=== PATIENT | female | born 1965 | race Caucasian/White ===

== ENCOUNTER 2017-01-03 16:18 | Inpatient (IN) | payer MEDICARE ==
--- NOTE | 2017-01-03 16:23 | ERPHSYRPT ---
- History of Present Illness Time Seen by Provider: 01/03/17 16:22 Historian: patient Exam Limitations: no limitations Physician History: 51 y/o female comes to the ER with complaints of diffuse abdominal pain, constipation and difficulty urinating for the last few days. Pt has been using senna infrequently with no BM in the last 5 days. Pt admits to early satiety and a few episodes of nausea and vomiting. Pt describes the pain as aching, 8/10 , constant and pt has not taken any pain meds. Pt has had constipation in the past and says she feels the same. Timing/Duration: day(s) (5 days) Activities at Onset: none Quality: aching Abdominal Pain Onset Location: generalized abdomen Pain Radiation: no radiation Severity of Pain-Max: severe Severity of Pain-Current: severe Modifying Factors: Improves With: nothing Associated Symptoms: nausea, vomiting Previous symptoms: no prior history Allergies/Adverse Reactions: codeine Allergy (Verified 01/03/17 16:53) dizzy, n&v Home Medications: Amlodipine Besylate 5 mg [Norvasc 5 mg] 5 mg PO DAILY 07/14/14 [History] Gabapentin 300 mg PO UD 07/14/14 [History] Hydrochlorothiazide 25 mg [hydroDIURIL 25 MG] 25 mg PO DAILY 07/14/14 [ History] Lisinopril [Zestril] 20 mg PO DAILY 07/14/14 [History] Sertraline HCl 100 mg [Zoloft 100 MG] 100 mg PO DAILY 02/01/15 [History] Hx Tetanus, Diphtheria Vaccination/Date Given: Yes Hx Influenza Vaccination/Date Given: No Hx Pneumococcal Vaccination/Date Given: No - Review of Systems Constitutional: No Fever, No Chills Eyes: No Symptoms Ears, Nose, & Throat: No Symptoms Respiratory: No Cough, No Dyspnea Cardiac: No Chest Pain, No Edema, No Syncope Abdominal/Gastrointestinal: Abdominal Pain, Nausea, Vomiting, Constipation, Appetite Changes, No Diarrhea Genitourinary Symptoms: No Dysuria Musculoskeletal: No Back Pain, No Neck Pain Skin: No Rash Neurological: No Dizziness, No Focal Weakness, No Sensory Changes Psychological: No Symptoms Endocrine: No Symptoms All Other Systems: Reviewed and Negative - Past Medical History Pertinent Past Medical History: Yes Neurological History: No Pertinent History ENT History: No Pertinent History Cardiac History: Hypertension Respiratory History: Asthma Endocrine Medical History: Hypoglycemia Musculoskeletal History: No Pertinent History GI Medical History: Diverticulitis History: No Pertinent History Psycho-Social History: Anxiety, Depression Female Reproductive Disorders: No Pertinent History Other Medical History: RESTLESS LEG SYNDROME, PTSD. CHRONIC DIARHEA - Past Surgical History Past Surgical History: Yes Neuro Surgical History: No Pertinent History Cardiac: No Pertinent History Respiratory: No Pertinent History Gastrointestinal: No Pertinent History Genitourinary: No Pertinent History Musculoskeletal: No Pertinent History Female Surgical History: No Pertinent History Other Surgical History: infected milk duct in left breast in 2014 had to have it removed. - Social History Smoking Status: Current every day smoker How long have you smoked: 20 Exposure to second hand smoke: No Drug Use: none Patient Lives Alone: Yes - Nursing Vital Signs Nursing Vital Signs: Initial Vital Signs Temperature 99.5 F Temperature Source Oral Pulse Rate 84 Respiratory Rate 16 Blood Pressure [Right Arm] 114/86 Pain Intensity 3 - Physical Exam General Appearance: no apparent distress, alert Eye Exam: PERRL/EOMI, eyes nml inspection Ears, Nose, Throat Exam: normal ENT inspection, pharynx normal, moist mucous membranes Neck Exam: normal inspection, non-tender, supple, full range of motion Respiratory Exam: normal breath sounds, lungs clear, No respiratory distress Cardiovascular Exam: regular rate/rhythm, normal heart sounds Gastrointestinal/Abdomen Exam: soft, normal bowel sounds, tenderness, distention , No mass Back Exam: normal inspection, normal range of motion, No CVA tenderness, No vertebral tenderness Extremity Exam: normal inspection, normal range of motion, pelvis stable Neurologic Exam: alert, oriented x 3, cooperative, normal mood/affect, nml cerebellar function, sensation nml, No motor deficits Skin Exam: normal color, warm, dry - Course Nursing assessment & vital signs reviewed: Yes Ordered Tests: Active Orders 24 hr Category Date Time Status IV Insertion STAT Care 01/03/17 18:12 Active ABDOMEN 2 VIEW Stat Exams 01/03/17 16:50 Taken ABDOMEN AND PELVIS W CONTRAST [CT] Stat Exams 01/03/17 18:12 Taken AMYLASE Stat Lab 01/03/17 18:44 Completed CBCD [CBC W DIFF] Stat Lab 01/03/17 18:44 Completed CMP Stat Lab 01/03/17 18:44 Completed CULTURE,URINE Stat Lab 01/03/17 17:00 Received LIPASE Stat Lab 01/03/17 18:44 Completed Lactic Acid Stat Lab 01/03/17 20:43 Ordered Manual Differential NC Stat Lab 01/03/17 18:44 Completed UA W/ MICROSCOPIC Stat Lab 01/03/17 17:00 Completed Medication Summary Generic Name Dose Route Start Last Admin Trade Name Freq PRN Reason Stop Dose Admin Potassium Chloride 100 mls @ 50 mls/hr 01/03/17 19:36 01/03/17 19:54 Potassium Chloride 20 Meq In Water 100ml IV 01/03/17 21:35 50 mls/hr STAT ONE Administration Sodium Chloride 1,000 mls @ 0 mls/hr 01/03/17 19:45 01/03/17 19:55 Sodium Chloride 0.9% 1000 Ml IV 02/02/17 19:44 100 mls/hr .Q0M BRIONNA Administration KVO Discontinued Medications Generic Name Dose Route Start Last Admin Trade Name Freq PRN Reason Stop Dose Admin Sodium Chloride Confirm 01/03/17 19:40 Sodium Chloride 0.9% 1000 Ml Administered 01/03/17 19:41 Dose 1,000 mls @ ud .ROUTE .STK-MED ONE Potassium Chloride Confirm 01/03/17 19:40 Potassium Chloride 20 Meq In Water 100ml Administered 01/03/17 19:41 Dose 100 mls @ ud IV .STK-MED ONE Morphine Sulfate 2 mg 01/03/17 18:28 01/03/17 18:50 Morphine Sulfate 2 Mg Inj IV 01/03/17 18:29 2 mg STAT ONE Administration Morphine Sulfate Confirm 01/03/17 18:49 Morphine Sulfate 2 Mg Inj Administered 01/03/17 18:50 Dose 2 mg .ROUTE .STK-MED ONE Ondansetron HCl 4 mg 01/03/17 18:27 01/03/17 18:51 Zofran 4 Mg/2 Ml Vial IV 01/03/17 18:28 4 mg STAT ONE Administration Ondansetron HCl Confirm 01/03/17 18:48 Zofran 4 Mg/2 Ml Vial Administered 01/03/17 18:49 Dose 4 mg .ROUTE .STK-MED ONE Lab/Rad Data: Laboratory Result Diagrams 01/03/17 18:44 01/03/17 18:44 Laboratory Results 07/14/17 07/14/17 07/14/17 Range/Units 18:44 18:44 17:00 WBC 18.2 H (4.0-10.5) K/mm3 RBC 3.79 L (4.1-5.4) M/mm3 Hgb 11.2 L (12.0-16.0) gm/dl Hct 34.4 L (35-47) % MCV 90.8 (78-100) fl MCH 29.5 (26-32) pg MCHC 32.6 (32-36) g/dl RDW 13.1 (11.5-14.0) % Plt Count 587 H (150-450) K/mm3 MPV 9.5 (6-9.5) fl Segmented Neutrophils 88 H (36.0-66.0) % Lymphocytes (Manual) 6 L (24-44) % Monocytes (Manual) 6 (0.0-12.0) % Differential Comment NORMAL Platelet Estimate NORMAL (NORMAL) Sodium 140 (136-145) mEq/L Potassium 2.8 L* (3.5-5.1) mEq/L Chloride 99 (98-107) mEq/L Carbon Dioxide 27.0 (21-32) mEq/L Anion Gap 16.8 H (5-15) MEQ/L BUN 21 H (9-20) mg/dL Creatinine 1.06 (0.55-1.30) mg/dl Estimated GFR 58 ML/MIN Glucose 108 (70-110) MG/DL Calcium 9.4 (8.5-10.1) mg/dL Total Bilirubin 0.30 (0.2-1.0) mg/dL AST 14 L (15-37) U/L ALT 10 L (12-78) U/L Alkaline Phosphatase 114 (46-116) U/L Serum Total Protein 8.0 (6.4-8.2) gm/dL Albumin 2.7 L (3.4-5.0) g/dL Amylase 14 L (25-115) U/L Lipase 65 L (73-393) U/L Ur Collection Type VOID Urine Color YELLOW (YELLOW) Urine Appearance CLOUDY (CLEAR) Urine pH 6.0 (5-6) Ur Specific [place] 1.020 (1.005-1.025) Urine Protein 30 (Negative) Urine Ketones LARGE (NEGATIVE) Urine Blood LARGE (0-5) Victorino/ul Urine Nitrite NEGATIVE (NEGATIVE) Urine Bilirubin SMALL (NEGATIVE) Urine Urobilinogen 1 (0-1) mg/dL Ur Leukocyte Esterase LARGE (NEGATIVE) Urine Microscopic WBC 50-100 (0-5) /HPF Ur Epithelial Cells MANY (FEW) /HPF Amorphous Crystals FEW (NEGATIVE) /HPF Urine Bacteria MANY (NEGATIVE) /HPF Urine Glucose 50 (NEGATIVE) mg/dL Specimen Received 01/03/17 1700 - Progress Progress: improved Progress Note: 01/03/17 20:53 The patient has a K of 2.8 and was given a k-rider. Pt also has a white count of 18,000. The CT scan abd/pelvis shows a distal sigmoid and rectal mass up to 10 cm long producing obstruction with proximal colonic dilatation up to 7 cm. I spoke to Dr Terry who says that his partner will see the patient in the morning for colonoscopy. Pt has been admitted to Dr Cabrera for sigmoid mass and abdominal pain. - Departure Time of Disposition: 20:55 Departure Disposition: In-patient Admission Clinical Impression: Mass in rectum Condition: Fair Critical Care Time: Yes Critical Care Time(excluding separately billable procedures): 75-104 minutes
[2017-01-03 17:14] LABS: Collection Type VOID; Glucose 50 mg/dL (NEGATIVE); Leukocyte Esterase LARGE (NEGATIVE)
[2017-01-03 17:15] LABS: Bacteria MANY /HPF (NEGATIVE); Bilirubin SMALL (NEGATIVE); Blood LARGE Ery/ul (0-5); COMPLETE URINE MICROSCOPIC? YES; Epithelial Cells MANY /HPF (FEW); WBC 50-100 /HPF (0-5)
[2017-01-03 17:17] LABS: ADD URINE CULTURE? YES (NO)
[2017-01-03] MEDS ORDERED: Zofran 4 MG/2 ML VIAL IV ONE (18:27)
[2017-01-03] MEDS ORDERED: MORPHINE SULFATE 2 MG INJ IV ONE (18:28)
[2017-01-03] MEDS ORDERED: Zofran 4 MG/2 ML VIAL ONE (18:48)
[2017-01-03] MEDS ORDERED: MORPHINE SULFATE 2 MG INJ ONE (18:49)
[2017-01-03 19:19] LABS: Mean Cell Volume 90.8 fl (78-100); Mean Platelet Volume 9.5 fl (6-9.5); Platelet Count 587 K/mm3 (150-450); Red Blood Count 3.79 M/mm3 (4.1-5.4); Red Cell Distribution Width 13.1 % (11.5-14.0); White Blood Count 18.2 K/mm3 (4.0-10.5)
[2017-01-03 19:20] LABS: Mean Corpuscular Hemoglobin 29.5 pg (26-32)
[2017-01-03 19:25] LABS: ALBUMIN 2.7 g/dL (3.4-5.0); ANION GAP 16.8 MEQ/L (5-15); BILIRUBIN,TOTAL 0.3 mg/dL (0.2-1.0)
[2017-01-03 19:32] LABS: Potassium 2.8 mEq/L (3.5-5.1)
[2017-01-03] MEDS ORDERED: POTASSIUM CHLORIDE 20 mEq IN WATER 100ML 100 ML IV ONE ×2 (19:36→19:40)
[2017-01-03] MEDS ORDERED: Sodium Chloride 0.9% 1000 ML 1,000 ML ONE (19:40)
[2017-01-03] MEDS ORDERED: Sodium Chloride 0.9% 1000 ML 1,000 ML IV SCH (19:45)
[2017-01-03 20:11] LABS: Platelet Estimate NORMAL (NORMAL); Total Cells Counted 100
[2017-01-03] MEDS ORDERED: Zofran 4 MG/2 ML VIAL IV PRN (20:56)
[2017-01-03] MEDS ORDERED: MORPHINE SULFATE 4 MG INJ IV PRN (20:56)
[2017-01-03] MEDS ORDERED: MORPHINE SULFATE 4 MG INJ IV ONE (21:00)
[2017-01-04] MEDS ORDERED: PROVENTIL COMMON CANISTER IH PRN (00:12)
[2017-01-04] MEDS: NEURONTIN 300 MG PO SCH ×3 (01:08→22:10)
[2017-01-04] MEDS: Mirapex 0.5 MG Tablet PO SCH ×2 (01:09→22:10)
[2017-01-04 06:02] LABS: BASOPHIL % 0.1 % (0.0-0.4); Eosinophil % 0.8 % (0.00-5.0); Granulocytes % 77.8 % (36.0-66.0); Lymphocytes % 11.9 % (24.0-44.0); Mean Cell Volume 92.6 fl (78-100); Mean Platelet Volume 8.6 fl (6-9.5); Monocytes % 9.4 % (0.0-12.0); Platelet Count 576 K/mm3 (150-450); Red Blood Count 3.52 M/mm3 (4.1-5.4); Red Cell Distribution Width 13.2 % (11.5-14.0); White Blood Count 15.6 K/mm3 (4.0-10.5)
[2017-01-04 06:29] LABS: Mean Corpuscular Hemoglobin 29.2 pg (26-32)
[2017-01-04 06:42] LABS: ALBUMIN 2.5 g/dL (3.4-5.0); BILIRUBIN,TOTAL 0.3 mg/dL (0.2-1.0); Carbon Dioxide 28.2 mEq/L (21-32); Total Protein 7.4 gm/dL (6.4-8.2)
[2017-01-04] MEDS: PROVENTIL COMMON CANISTER IH SCH ×3 (07:27→20:11)
--- NOTE | 2017-01-04 07:47 | XRAY ---
Indication: Difficulty with bowel movements and urinating for 7 days. Comparison: July 14, 2014. 2 views of the abdomen now demonstrates abnormal air distended colon throughout concerning for distal obstruction. No free air. Solid organs obscured by the overlying bowel gas but grossly unremarkable. Osseous structures intact again with mild multilevel degenerative spondylosis and mild double curvature scoliosis. Lung bases clear. Impression: New abnormal air distended colon concerning for obstruction. See same day CT abdomen/pelvis exam.
[2017-01-04] MEDS ORDERED: BRIDION 200MG/2ML IV ONE (08:00)
[2017-01-04] MEDS ORDERED: Zofran 4 MG/2 ML VIAL IV ONE (08:00)
[2017-01-04] MEDS ORDERED: DIPRIVAN 200 MG/20 ML IV ONE (08:00)
[2017-01-04] MEDS ORDERED: Quelicin Fliptop 200 MG/10 ML IJ ONE (08:00)
[2017-01-04] MEDS ORDERED: SUBLIMAZE 250 MCG/5 ML IV ONE (08:00)
[2017-01-04] MEDS ORDERED: Zemuron 100 MG/10 ML IJ ONE (08:00)
[2017-01-04] MEDS ORDERED: LIDOCAINE HCL 2% 100 MG/5 ML IJ ONE (08:00)
[2017-01-04] MEDS ORDERED: Versed 2 MG/2 ML Injection IV ONE (08:00)
[2017-01-04] MEDS ORDERED: Decadron 4 MG INJ IV ONE (08:00)
[2017-01-04] MEDS ORDERED: DILAUDID 2 MG INJECTION IV ONE (08:00)
--- NOTE | 2017-01-04 08:09 | XRAY ---
Indication: Difficulty urinating. Constipation. Multiple contiguous axial images obtained through the abdomen and pelvis using 80 cc Isovue 370 contrast only. Comparison: None Lung bases demonstrates medial right middle lobe subsegmental atelectasis. No infiltrate or effusion. Heart is not enlarged. Small hiatal hernia. There is diffuse abnormal air distended colon up to 7 cm in diameter to the level of the distal sigmoid/rectum where there is a large soft tissue mass producing obstruction. Soft tissue mass demonstrates multifocal pockets of fluid possibly tissue necrosis. The mass measures at least 10 cm in length. No free fluid/air or evidence for perforation. Minimal scattered sigmoid diverticulosis. Noncontrasted stomach and small bowel loops unremarkable. 8 mm left mid renal cortical cyst and nonobstructing right renal micro-calculus. Remaining liver, gallbladder, pancreas, spleen, adrenal glands, kidneys, ureters, bladder, and uterus appear unremarkable. Mild aortoiliac calcifications without AAA. A few small periaortic nodes, largest 8 x 11 mm anterior to the aortic bifurcation. Osseous structures intact with mild degenerative changes throughout the spine greatest at the lumbosacral junction. Heterotopic ossifications adjacent to the left ischial tuberosity either degenerative versus old injury. Impression: 1. Heterogeneous distal sigmoid/rectal mass producing obstruction worrisome for malignancy. No evidence for perforation. Incidental sigmoid diverticulosis. 2. Indeterminant small periaortic nodes. Metastasis not completely excluded. 3. Incidental left renal cyst, nonobstructing right renal micro-calculus, and small hiatal hernia. CTDI 27.38
[2017-01-04] MEDS: POTASSIUM CHLORIDE 20 mEq IN WATER 100ML 100 ML IV SCH ×2 (09:00→15:08)
[2017-01-04] MEDS ORDERED: AlbuRx 25% 50ML VIAL*** 50 ML IV ONE (09:04)
[2017-01-04] MEDS ORDERED: Lactated Ringers 3,000 ML IV ONE (09:05)
--- NOTE | 2017-01-04 09:09 | PCM.HP ---
History of Present Illness - Chief Complaint Chief Complaint: sigmoid mass History of Present Illness: is a 51 year old female who has had intermittent constipation issues for the last few months intermittently. She has had significant problems with constipation for the last 10 days or so. She denies blood in the stool. She had a colonoscopy 2 years ago that showed diverticular disease and right sided colitis. She has a history of hypertension and hypothyroidism. - Review of Systems Constitutional: No Fever, No Chills Cardiac: No Chest Pain, No Edema, No Syncope Abdominal/Gastrointestinal: Constipation, No Abdominal Pain, No Nausea, No Vomiting Genitourinary Symptoms: No Dysuria Skin: No Rash All Other Systems: Reviewed and Negative Medications & Allergies Home Medications: Home Medication List Amlodipine Besylate 5 mg [Norvasc 5 mg] 5 mg PO DAILY 07/14/14 [History Confirmed 01/04/17] Hydrochlorothiazide 25 mg [hydroDIURIL 25 MG] 25 mg PO DAILY 07/14/14 [ History Confirmed 01/04/17] Lisinopril [Zestril] 20 mg PO DAILY 07/14/14 [History Confirmed 01/04/17] Sertraline HCl 100 mg [Zoloft 100 MG] 125 mg PO DAILY 02/01/15 [History Confirmed 01/04/17] Hydroxyzine HCl 25 mg [Atarax 25 mg] 25 mg PO TID PRN PRN #90 tablet 02/03 [Rx Confirmed 01/04/17] Pramipexole Di-HCl [Mirapex] 0.5 mg PO QHS 01/03/17 [History Confirmed 01/04/17] Gabapentin [Neurontin] 600 mg PO DAILY 01/04/17 [History Confirmed 01/04/17] Gabapentin [Neurontin] 900 mg PO HS 01/04/17 [History Confirmed 01/04/17] Allergies/Adverse Reactions: Allergies Allergy/AdvReac Type Severity Reaction Status Date / Time codeine Allergy tang, n&v Verified 01/03/17 16:53 - Past Medical History Past Medical History: Yes Neurological History: No Pertinent History ENT History: Cataracts Cardiac History: Hypertension Respiratory History: Asthma Endocrine Medical History: No Pertinent History Musculoskelatal History: No Pertinent History GI Medical History: Colitis, Diverticulitis History: No Pertinent History Pyscho-Social History: Anxiety, Depression Reproductive Disorders: No Pertinent History Comment: RESTLESS LEG SYNDROME, PTSd - Female History Hx Last Menstrual Period: MENOPAUSE Are you now?: No - Past Surgical History Past Surgical History: Yes Neuro Surgical History: No Pertinent History Cardiac History: No Pertinent History Respiratory Surgery: No Pertinent History GI Surgical History: No Pertinent History Genitourinary Surgical Hx: No Pertinent History Musculskeletal Surgical Hx: No Pertinent History Female Surgical History: No Pertinent History Other Surgical History: infected milk duct in left breast in 2014 had to have it removed. tubal ligation, jaw surgery 33 years ago - Social History Smoking Status: Current every day smoker How long have you smoked: 32 years Exposure to second hand smoke: Yes Alcohol: None Drug Use: none - Physical Exam Vital Signs: Vital Signs - 24 hr Temp Pulse Resp BP Pulse Ox 01/04/17 08:00 97.9 F 71 18 125/71 97 01/04/17 07:00 78 18 97 01/04/17 04:00 98.1 F 74 19 114/73 94 L 01/04/17 00:00 98.1 F 79 18 114/86 95 01/03/17 23:52 79 18 95 01/03/17 23:00 98.1 F 82 18 114/86 93 L 01/03/17 22:50 98.1 F 82 18 118/70 93 L 01/03/17 19:50 84 16 114/86 94 L 01/03/17 19:00 82 18 128/82 96 01/03/17 17:50 86 18 140/80 94 L 01/03/17 17:08 90 16 117/72 94 L 01/03/17 16:43 99.5 F 86 20 121/54 95 Oxygen-Last 24 hours O2 Percentage 2 Liters = 28% O2 Percentage 2 Liters = 28% O2 Percentage 2 Liters = 28% General Appearance: no apparent distress, alert Eye Exam: PERRL/EOMI, eyes nml inspection Respiratory Exam: normal breath sounds, lungs clear, No respiratory distress Cardiovascular Exam: regular rate/rhythm, normal heart sounds, normal peripheral pulses Gastrointestinal/Abdomen Exam: tenderness (LLQ) Extremity Exam: normal inspection, normal range of motion, pelvis stable Skin Exam: normal color, warm, dry, No rash Results - Labs Lab/Micro Results: Lab Results-Last 24 Hours 01/04/17 01/04/17 Range/Units 05:55 05:55 WBC 15.6 H (4.0-10.5) K/mm3 RBC 3.52 L (4.1-5.4) M/mm3 Hgb 10.3 L (12.0-16.0) gm/dl Hct 32.6 L (35-47) % MCV 92.6 (78-100) fl MCH 29.2 (26-32) pg MCHC 31.6 L (32-36) g/dl RDW 13.2 (11.5-14.0) % Plt Count 576 H (150-450) K/mm3 MPV 8.6 (6-9.5) fl Gran % 77.8 H (36.0-66.0) % Lymphocytes % 11.9 L (24.0-44.0) % Monocytes % 9.4 (0.0-12.0) % Eosinophils % 0.8 (0.00-5.0) % Basophils % 0.1 (0.0-0.4) % Basophils # 0.01 (0-0.4) Sodium 142 (136-145) mEq/L Potassium 3.0 L* (3.5-5.1) mEq/L Chloride 103 (98-107) mEq/L Carbon Dioxide 28.2 (21-32) mEq/L Anion Gap 14.0 (5-15) MEQ/L BUN 26 H (9-20) mg/dL Creatinine 1.13 (0.55-1.30) mg/dl Estimated GFR 54 ML/MIN Glucose 102 (70-110) MG/DL Calcium 9.2 (8.5-10.1) mg/dL Total Bilirubin 0.30 (0.2-1.0) mg/dL AST 14 L (15-37) U/L ALT 10 L (12-78) U/L Alkaline Phosphatase 102 (46-116) U/L Serum Total Protein 7.4 (6.4-8.2) gm/dL Albumin 2.5 L (3.4-5.0) g/dL - Other Procedures and Tests Respiratory Therapy 01/04/17 00:12 Respiratory MDI PRN 01/04/17 00:13 Oxygen NASAL CANNULA 2 lpm 01/04/17 07:00 Respiratory MDI TID Assessment/Plan (1) Mass in rectum Current Visit: Yes Status: Acute Assessment & Plan: Dr Menendez is taking the patient to surgery with planned resection Code(s): K62.9 - DISEASE OF ANUS AND RECTUM, UNSPECIFIED (2) Essential (primary) hypertension Current Visit: Yes Status: Acute Assessment & Plan: stable currently, continue home meds Code(s): I10 - ESSENTIAL (PRIMARY) HYPERTENSION (3) Hypothyroidism Current Visit: Yes Status: Acute Code(s): E03.9 - HYPOTHYROIDISM, UNSPECIFIED
[2017-01-04] MEDS ORDERED: Lactated Ringers 1,000 ML IV ONE (09:22)
[2017-01-04] MEDS ORDERED: KEFZOL 1 GM ONE (09:52)
[2017-01-04] MEDS ORDERED: Lactated Ringers 1,000 ML IV SCH (10:00)
[2017-01-04] MEDS ORDERED: MEFOXIN 2 GM PREMIX** 2 GM/50 ML ML IV SCH (10:00)
[2017-01-04] MEDS ORDERED: DILAUDID 1 MG/1ML PCA IV PRN (13:12)
[2017-01-04] MEDS ORDERED: TORAdol 30 mg Injection ONE (13:12)
[2017-01-04] MEDS ORDERED: PHARMACY DOSING REQUIRED: DILAUDID PCA IV ONE (14:59)
[2017-01-04] MEDS ORDERED: TYLENOL 325 MG PO PRN (15:03)
[2017-01-04] MEDS ORDERED: FEVERALL 650 MG RC PRN (15:07)
[2017-01-04] MEDS ORDERED: Zestril 20 MG PO SCH (15:30)
[2017-01-04] MEDS ORDERED: NORVASC 5 MG PO SCH (15:30)
--- NOTE | 2017-01-04 16:30 | CONS ---
CONSULT DATE: 01/04/17 Dr. Terry is on-call for our group. He is covering trauma call. He asked me to see this patient. HISTORY OF PRESENT ILLNESS: 51 y/o female had an endoscopy 2 or 3 years ago. Had some diverticular disease. Now, in with increased abdominal pain, cramping, and some difficulty in urinating over the past few days. No significant bowel movement over the past several days. She had passed some gas, but not today. She had had some nausea. PAST MEDICAL HISTORY: Hypertension. She is a little bit overweight. She denies any heart problems. She has had some posttraumatic stress disorder and some restless leg syndrome. She did have some history of some chronic loose stools in the past. PAST SURGICAL HISTORY: She had a tubal in the past. Thought she said she may have some breast surgery. Had an infected milk duct removed back in 2013 and I don't recall if she said she had had any jaw surgery or not. Otherwise, other than the hypertension and some asthma and chronic obstructive pulmonary disease, has had some anxiety or depression. Otherwise, denies any chest pain or palpitations. HOME MEDICATIONS: Amlodipine, gabapentin, hydrochlorothiazide, lisinopril, and sertraline. ALLERGIES: CODEINE CAUSED SOME DIZZINESS, NAUSEA, AND VOMITING IN THE PAST. Lactic acid was 0.9 when she was admitted yesterday. WBC was 15, Hgb 10.3, platelets 576,000. CT scan of the pelvis showed heterogeneous distal sigmoid/rectal mass causing obstruction. Whether from dilated proximal colon. No obvious free air collection. She did have diverticulosis. Had some small periaortic nodes. Nonobstructing right renal calculus. Also has a renal cyst. REVIEW OF SYSTEMS: 12 systems reviewed pertinent for as noted above. PHYSICAL EXAMINATION: GENERAL: No acute distress. Vital signs stable. HEENT: Sclerae nonicteric. NECK: No JVD. CHEST: Equal excursion. Nonlabored breathing. ABDOMEN: Some distention. Some mild tenderness. No rebound. No guarding currently. EXTREMITIES: No significant edema. NEURO: Alert, moving extremities grossly symmetrically. IMPRESSION: 1. LARGE BOWEL OBSTRUCTION UNCLEAR ETIOLOGY. Could be anything from diverticular stricture to neoplasia malignancy, inflammatory bowel disease or other etiology. Anyway, given large bowel obstruction, feel she warrants emergent laparotomy, likely end ostomy, possible partial colectomy pending operative findings as well as possible endoscopy for biopsy. General risks of anesthesia, deep vein thrombosis, pulmonary embolism, or pneumonia; risk of wound complications, hernia, or dehiscence; risk of stomal complications, necrosis, retraction, peristomal hernia; risk of bowel obstruction or ileus; small risk of bowel, bladder, blood vessel, or ureter issues or injury possibly requiring other procedures, but not limited to. She understands all of the above and understands if she declines the operation, likely the bowel would continue to get distended and likely perforate eventually much worsening the prognosis. She understands all of the above as well as the risk of renal insufficiency, pneumonia, and cardiopulmonary event given her comorbidities, but not limited to. Will proceed with exploratory laparotomy, likely end ostomy, possible partial colectomy, possible colonoscopy when OR time available. Dr. Terry is on-call for our group out on trauma call. He prefers I go ahead and take care of this while I am down here. He will cover trauma call in [place] during this interim. Thank you for the consult.
[2017-01-04] MEDS: D5W/0.45NS W/ 20mEq KCl 1000 ML 1,000 ML IV SCH (16:58)
[2017-01-04] MEDS: Zosyn 3.375GM/100 Ml D5W 3.375 GM/100 ML IVPB IV SCH (16:58)
[2017-01-04] MEDS: ZOLOFT 50 MG TABLET PO SCH (16:58)
--- NOTE | 2017-01-04 18:59 | OP ---
THIS REPORT WAS AMENDED ON 01/08/17. SURGERY DATE: 01/04/17 SURGERY TIME: 935 PREOPERATIVE DIAGNOSIS: 1. HIGH GRADE PARTIAL LARGE BOWEL OBSTRUCTION WITH MEGACOLON. POSTOPERATIVE DIAGNOSIS: 1. HIGH GRADE PARTIAL BOWEL OBSTRUCTION. 2. RECTOSIGMOID inflammatory MASS(currently unresectable). PROCEDURE: 1. Exploratory laparotomy. 2. Partial sigmoid colon resection. 3. End colostomy. 4. Staple closure rectosigmoid stump. 5. True cut core biopsy of inflammatory rectosigmoid mass. 6. Colonoscopy through ostomy to ascending colon. 7. Flexible sigmoidoscopy through anus with cold biopsy of inflammatory rectosigmoid mass. SURGEON: Dr. Earnest Menendez. ANESTHESIA: General. ESTIMATED BLOOD LOSS: Minimal. INDICATIONS: As noted above. Risks and benefits explained in detail, but not limited to. Consent was obtained. The patient had a large bowel obstruction with a megacolon. Was having cramping and pain. CT scan showed rectosigmoid area density or mass. It was felt she could not tolerate a bowel prep given her very distended megacolon. It was felt she warranted laparotomy and probable ostomy. Risks and benefits explained in detail, but not limited to as outlined per surgical consult. Consent was obtained. DESCRIPTION OF PROCEDURE AND FINDINGS: The patient was taken to the OR. General anesthesia was induced. The abdomen was prepped and draped in the usual sterile fashion. After official time-out, no disagreement in planned procedure. Midline incision which was later extended up towards the mid epigastrium. Dissection carried down through the linea alba. Peritoneum entered sharply. The patient had quite distended megacolon which made it very difficult to manipulate the bowel. The white line of Toldt released laterally on the left. There was inflammation and a firmness down in the pelvis that was not resectable at this point. Therefore, the sigmoid was stapled with plan for end colostomy. It was quite friable mesentery requiring clamping, dividing, and ligating with Vicryl ties and ligature device. It should be noted that there was blood supply to a 10 or 15 segment of the left colon and it was felt it would be safer not to save that for the ostomy. This part of the colon was kept as a blowhole initially to try to decompress the colon to get some of the air out with an NG tube, but never had thick stool to be able to do that. The NG was removed. The lateral peritoneal reflection was continued to be incised allowing the colon to be mobilized up through a left-sided ostomy cruciate incision up through the posterior and anterior rectus sheath with this devitalized colon that was planned to be resected with 10 or 15 cm left out as a blowhole. Initially tried to decompress more proximal, but seemed to have more gas in the more proximal colon than G tube. This was unsuccessful. The next best option was felt to use the colonoscope. Was carefully passed up through the ostomy through the descending colon and transverse colon around the ascending colon decompressing the gas as much as possible. This was still quite difficult given the extensive thick stool in the colon and nearly impossible to try to decompress this, but was able to decompress a lot of the gas. There had been no obvious obstructing masses in the more proximal colon, but again very poor prep, basically no bowel prep. The scope as then gradually withdrawn again decompressing as much of the gas as possible to allow for closure. Once this was accomplished, the colonoscope was removed. At this point, attention was then turned. As there was too much inflammation to safely resect this pelvic inflammatory firm mass, it was elected to do a colonoscopy. Flexible sigmoidoscopy was then accomplished up through the anus/distal rectum. No obvious masses or polyps, but in the more proximal rectum/rectosigmoid area, there was a firm density that had some inflammation over it. Whether this is some mass in the bowel wall is difficult to tell. The scope was able to be passed just passed there, so it was not completely obstructing, but I agreed partial obstruction. The colon was decompressed as well as possible. Multiple cold biopsies were taken with the aid of the endoscope. So it was flexible sigmoidoscopy with cold biopsies of this inflammatory density. Good hemostasis was noted. The scope was then withdrawn after it was decompressed as well as possible. At this point, I have elected to go ahead and do a true cut core biopsy of the density transrectal from inside the abdomen. True cut core biopsy was carefully inserted and advanced forward and then passed over the true cut core biopsy and specimen was then sent off. 3-0 PDS suture closed this area. MAU drain was left in the pelvis along either side of the gutter out through the lateral stab wound. Secured with PDS suture. Placed to bulb suction. A copious amount of irrigation irrigating until clear. All packs had been removed. As much of the distended colon had been decompressed as possible. At this point, consideration made to bring up a mucus fistula. However, this was not a complete obstruction and given her obesity, the distal limb did not seem mobile enough to safely come up to the skin. Therefore, it is not a complete obstruction. It was felt the risk of the thing retracting given her obesity would be more potential than the benefit of any pop off mucus fistula as this was not completely obstructing. Therefore, biopsies had been taken and stump had been stapled off. A copious amount of irrigation irrigating until clear. Good hemostasis was visible. At this point, fascia was closed with running, looped sequential 0 PDS with a short segment of running PDS was used in the very distal caudal aspect of the fascial area should some sort of mucus fistula be necessary later. Otherwise, subq irrigated out. Skin stapled with some Iodoform packing placed to allow for any drainage. Dressing was applied at this point at the ostomy. Again, the last 10 or 15 cm of the poor quality sigmoid colon had been resected down to what appeared to be viable colon. The ostomy was matured in a nipple fashion with interrupted 3-0 and 4-0 Vicryl. Patient tolerated the procedure well. There were no immediate complications. Findings discussed with the family out in the waiting area. Will await for path results. In the meantime, she had NG decompression, IV hydration, and bowel rest. When ostomy starts functioning better, will then discontinue the NG and advance her diet, but need to avoid all extra distention at this time given her distended megacolon, but even though decompressed, was not able to be decompressed completely given the thick stool in her colon.
[2017-01-05] MEDS: D5W/0.45NS W/ 20mEq KCl 1000 ML 1,000 ML IV SCH ×2 (03:30→14:23)
[2017-01-05] MEDS: Zosyn 3.375GM/100 Ml D5W 3.375 GM/100 ML IVPB IV SCH ×2 (03:32→07:38)
[2017-01-05] MEDS: PROVENTIL COMMON CANISTER IH SCH (05:15)
[2017-01-05] MEDS ORDERED: ENOXAPARIN SODIUM SQ SCH (06:00)
[2017-01-05] MEDS ORDERED: NORCO 5/325 MG PO PRN (06:00)
[2017-01-05 06:50] LABS: Mean Cell Volume 95.2 fl (78-100); Platelet Count 518 K/mm3 (150-450); Red Cell Distribution Width 13.9 % (11.5-14.0); White Blood Count 19.6 K/mm3 (4.0-10.5)
[2017-01-05 07:36] LABS: ALBUMIN 2.1 g/dL (3.4-5.0); ANION GAP 14.4 MEQ/L (5-15); BILIRUBIN,TOTAL 0.4 mg/dL (0.2-1.0); Carbon Dioxide 25.8 mEq/L (21-32); MAGNESIUM 1.9 mg/dL (1.8-2.4); Potassium 4.3 mEq/L (3.5-5.1); Total Protein 6.2 gm/dL (6.4-8.2)
[2017-01-05] MEDS ORDERED: Sodium Chloride 0.9% 1000 ML 1,000 ML IV SCH (09:30)
--- NOTE | 2017-01-05 09:33 | PCM.NOTE ---
Date and Time: 01/05/17926 Subjective Assessment: patient states her pain is controlled at this time, urine output has been decreased since surgery Objective Exam General Appearance: no apparent distress, alert Skin Exam: normal color, warm, dry Respiratory Exam: normal breath sounds, lungs clear, No respiratory distress Cardiovascular Exam: regular rate/rhythm, normal heart sounds Gastrointestinal/Abdomen Exam: soft, other (ostomy pink and viable), No tenderness, No mass Extremity Exam: normal inspection, normal range of motion OBJECTIVE DATA Vital Signs: Vital Signs - 24 hr Temp Pulse Resp BP Pulse Ox 01/05/17 08:00 97.6 F 80 20 82/49 92 L 01/05/17 05:52 93 L 01/05/17 05:15 77 20 95 01/05/17 04:00 98.5 F 83 21 91/53 93 L 01/05/17 00:00 98.5 F 79 19 84/61 96 01/04/17 21:38 96 01/04/17 20:37 97.9 F 63 18 90/55 96 01/04/17 20:11 63 14 97 01/04/17 17:38 97 01/04/17 16:00 98.0 F 67 18 109/65 97 01/04/17 15:34 84 16 96 01/04/17 15:24 18 01/04/17 14:35 97.8 F 78 18 108/58 92 L 01/04/17 14:05 89 18 108/59 96 01/04/17 13:50 97.2 F 76 16 109/64 92 L 01/04/17 13:38 94 L Oxygen-Last 24 hours O2 Percentage 4 Liters = 36% O2 Percentage 3 Liters = 32% O2 Percentage 3 Liters = 32% O2 Percentage 4 Liters = 36% O2 Percentage 4 Liters = 36% O2 Percentage 2 Liters = 28% O2 Percentage 2 Liters = 28% O2 Percentage 2 Liters = 28% Pain Assessment - Last Documented Pain Intensity 6 Pain Scale Used 0-10 Pain Scale Intake and Output: Intake & Output 01/02/17 01/03/17 01/04/17 01/05/17 11:59 11:59 11:59 11:59 Intake Total 179 1366 Output Total 455 Balance 179 911 Weight 97.522 kg Lab Results: Lab Results-Last 24 Hours 01/05/17 01/05/17 Range/Units 05:10 05:10 WBC 19.6 H (4.0-10.5) K/mm3 RBC 3.30 L (4.1-5.4) M/mm3 Hgb 9.6 L (12.0-16.0) gm/dl Hct 31.4 L (35-47) % MCV 95.2 (78-100) fl MCH 29.0 (26-32) pg MCHC 30.6 L (32-36) g/dl RDW 13.9 (11.5-14.0) % Plt Count 518 H (150-450) K/mm3 MPV 9.0 (6-9.5) fl Sodium 140 (136-145) mEq/L Potassium 4.3 (3.5-5.1) mEq/L Chloride 104 (98-107) mEq/L Carbon Dioxide 25.8 (21-32) mEq/L Anion Gap 14.4 (5-15) MEQ/L BUN 33 H (9-20) mg/dL Creatinine 2.90 H (0.55-1.30) mg/dl Estimated GFR 18 ML/MIN Glucose 136 H (70-110) MG/DL Calcium 8.1 L (8.5-10.1) mg/dL Magnesium 1.9 (1.8-2.4) mg/dL Total Bilirubin 0.40 (0.2-1.0) mg/dL AST 31 (15-37) U/L ALT 11 L (12-78) U/L Alkaline Phosphatase 73 (46-116) U/L Serum Total Protein 6.2 L (6.4-8.2) gm/dL Albumin 2.1 L (3.4-5.0) g/dL Multi-Disciplinary Progress Notes: Multi-Disciplinary Progress Notes 01/05/17 07:44 Pharmacy Note by Jarad Pelayo lower Zosyn dose to 2.25gm iv q8h per renal dosing policy for increased creatinine. Initialized on 01/05/17 07:44 - END OF NOTE Assessment/Plan (1) Acute renal failure Current Visit: Yes Status: Acute Assessment & Plan: increase IV fluid rate to 150mL/hr (2) Mass in rectum Current Visit: Yes Status: Acute Assessment & Plan: s/p ostomy placement and biopsy with Dr Lueking, path report pending. continue empiric IV abx with zosyn and flagyl due to possibly inflammatory process, infection Code(s): K62.9 - DISEASE OF ANUS AND RECTUM, UNSPECIFIED (3) Essential (primary) hypertension Current Visit: Yes Status: Acute Assessment & Plan: patient is hypotensive at this time, placed lisinopril and amlodipine on hold at this time. Code(s): I10 - ESSENTIAL (PRIMARY) HYPERTENSION (4) Hypothyroidism Current Visit: Yes Status: Acute Code(s): E03.9 - HYPOTHYROIDISM, UNSPECIFIED
[2017-01-05] MEDS ORDERED: SERTRALINE HCL PO SCH (10:00)
[2017-01-05] MEDS ORDERED: FLAGYL 500 MG IVPB 500 MG/100 ML BAG IV SCH (10:00)
[2017-01-05 10:13] LABS: Eosinophil 1 % (0.00-3.0); Platelet Estimate INCREASED (NORMAL); Total Cells Counted 100
[2017-01-05 10:14] LABS: Toxic Granulation 1+
[2017-01-05] MEDS: NEURONTIN 300 MG PO SCH (10:38)
[2017-01-05] MEDS: ZOLOFT 50 MG TABLET PO SCH (10:38)
[2017-01-05] MEDS ORDERED: PROVENTIL 2.5 MG/3 ML NEB IH ONE ×2 (11:15→11:30)
[2017-01-05] MEDS ORDERED: solu-MEDROL 40 MG IV SCH (12:00)
[2017-01-05 12:41] LABS: A-aADO2 587; ARTERIAL BLD GAS O2 SATURATION 96.1 % (95-100); ARTERIAL BLOOD GAS BASE EXCESS -3.8 (-2.0-2.0); ARTERIAL BLOOD GAS FIO2 100 %; ARTERIAL BLOOD GAS PO2 69 mmHg (75-100)
[2017-01-05] MEDS ORDERED: Lasix 20 MG/2 ML ONE (13:37)
[2017-01-05 13:46] LABS: ANION GAP 15.4 MEQ/L (5-15); Carbon Dioxide 25.4 mEq/L (21-32); Potassium 4.2 mEq/L (3.5-5.1)
[2017-01-05] MEDS ORDERED: Zosyn 2.25 GM 2.25 GM in Dextrose 5%/Water IV Soln. 100ML PLUS BAG 100 ML IV SCH (14:00)
[2017-01-05] MEDS ORDERED: DUONEB 0.5-3 MG/3 ml Neb IH SCH (15:00)
[2017-01-05] MEDS ORDERED: PROVENTIL 2.5 MG/3 ML NEB IH SCH (15:00)
[2017-01-05 17:14] VITALS: BP 84/54; PULSE 87; O2SAT 94
--- NOTE | 2017-01-05 19:48 | XRAY ---
Indication: Hypoxia and coughing. NG tube. Comparison: July 14, 2014. Portable chest is underinflated today with new bibasilar infiltrates/atelectasis. Upper lungs clear. Heart is not enlarged for AP portable technique. New NG tube with the tip coiled in the stomach. Bony thorax intact again with mild degenerative changes. Impression: Underinflated chest with new bibasilar infiltrates/atelectasis. Correlate clinically. NG tube in situ.
[2017-01-06 03:45] LABS: ALLEN TEST OK? YES
[2017-01-06] MEDS ORDERED: ENOXAPARIN SODIUM SQ SCH (10:00)
[2017-01-06] MEDS ORDERED: Lasix 20 MG/2 ML IV ONE (13:30)
--- NOTE | 2017-01-08 08:57 | DS ---
The patient was transferred to [facility] under the care of Dr. Tl Sharif Hospitalist. DISCHARGE DIAGNOSES: 1) ACUTE RENAL FAILURE. 2) RESPIRATORY DISTRESS. 3) RECTAL MASS. HOSPITAL COURSE: This patient is a 51 year-old female who reported to the emergency room on the date of admission. She reported a ten day history of constipation and worsening left lower quadrant abdominal pain. She was found to have a 10 cm [address] mass on CT scan and Dr. Terry was stone grader for the surgery group and was consulted in the emergency department. Dr. Menendez saw the patient the following morning in consultation on 01/04/2017 and took her to surgery and put in a diverting colostomy. He took biopsies of the lesion but it was apparently unresectable due to the extensive inflammatory response around it. There was some concern possibly for involvement of ureters on CT scan. Postoperatively she did well. Unfortunately she did not have good urine output. Her creatinine jumped to 2.9 the morning following the surgery and worsened that afternoon to 3.5. She was adequately hydrated and had a fluid rate increase due to the worsening renal function. She developed some diffuse edema with some third-spacing fluids and her respiratory status began to worsen. She was also hypotensive the day following surgery. Due to the third-spacing and developing respiratory distress in light of her acute renal failure, I requested a renal consult. The case was discussed with Dr. Montalvo who recommended admission to [facility] with the likelihood of needing continuous renal replacement therapy (CRRT) in the near future if her renal function did not improve. She was given 10 mg of IV Lasix due to low blood pressure. A small dosage was tried with no increase in urine output or results. The patient was transferred from the ICU at [facility] to [facility] by ambulance. Again, accepting physician was Dr. Sharif, Hospitalist, with intent of consulting with Dr. Montalvo from nephrology. Upon discharge her vitals were stable on oxygen mask at 100%, systolic blood pressure was around 87 and she was stable and conversant. Her ostomy was pink and viable. She will be followed at [facility] by Dr. Sharif.
== END 2017-01-05 15:57 | disposition home or self-care (01) | DRG 982 ==
LOC: ED 16:18 → MED SURG 22:38 → ICU 01-05 13:30
PROVIDERS: ADMIT Family Medicine; ATTEND Family Medicine
PROC: 0DBN0ZZ Excision of Sigmoid Colon, Open Approach (ICD-10-PCS; principal; 2017-01-04)
PROC: 0DQN0ZZ Repair Sigmoid Colon, Open Approach (ICD-10-PCS; 2017-01-04)
PROC: 0DJD8ZZ Inspection of Lower Intestinal Tract, Via Natural or Artificial Opening Endoscopic (ICD-10-PCS; 2017-01-04)
PROC: 0DBP8ZX Excision of Rectum, Via Natural or Artificial Opening Endoscopic, Diagnostic (ICD-10-PCS; 2017-01-04)
PROC: 0DBN8ZX Excision of Sigmoid Colon, Via Natural or Artificial Opening Endoscopic, Diagnostic (ICD-10-PCS; 2017-01-04)
DX: N17.9 Acute kidney failure, unspecified (principal); K56.60 Unspecified intestinal obstruction; K59.39 Other megacolon; R06.00 Dyspnea, unspecified; K62.9 Disease of anus and rectum, unspecified; I10 Essential (primary) hypertension; E03.9 Hypothyroidism, unspecified; J45.909 Unspecified asthma, uncomplicated; F41.8 Other specified anxiety disorders; F43.10 Post-traumatic stress disorder, unspecified; Z79.899 Other long term (current) drug therapy
CPT/HCPCS: 00840; 36000; 36415; 36600; 71010; 74020; 74177; 80048; 80053; 81000; 82150; 82375; 82803; 83605; 83690; 83735; 83880; 85025; 87077; 87086; 87186; 88305; 88307; 88341; 88342; 94640; 94760; 96360; 96365; 96366; 96374; 96375; 96376; 99285; J0330; J0690; J1100; J1170; J1650; J1885; J1940; J2250; J2270; J2405; J2543; J2704; J2920; J3010; J3480; L0625; P9047; A9270-GY

== ENCOUNTER 2017-04-08 07:34 | Day surgery (SDC) | payer MEDICARE ==
[2017-04-08] MEDS ORDERED: Visionblue IO ONE (07:35)
[2017-04-08] MEDS ORDERED: DIPRIVAN 200 MG/20 ML IV ONE (07:35)
[2017-04-08] MEDS ORDERED: Versed 2 MG/2 ML Injection IV ONE (07:35)
[2017-04-08] MEDS ORDERED: Lactated Ringers 1,000 ML IV ONE (07:46)
[2017-04-08] MEDS ORDERED: Xopenex 1.25 MG/0.5 ML UD NEBULE IH ONE (09:03)
[2017-04-08] MEDS ORDERED: Sodium Chloride 3 ML UD NEBULES IH ONE (09:04)
[2017-04-08] MEDS ORDERED: Ak-Dilate OPHTHALMIC*** 0.71 ML, Cyclogyl 1% OPHTH SOL 5 ML 0.71 ML, GATIFLOXACIN 0.5% ... OP ONE ×4 (09:30)
[2017-04-08] MEDS ORDERED: TETRACAINE 0.5% STERI-UNIT SOL OP ONE ×2 (09:30)
[2017-04-08] MEDS ORDERED: Lactated Ringers 1,000 ML IV SCH (09:30)
[2017-04-08] MEDS ORDERED: Sodium Chloride 3 ML UD NEBULES IH PRN (09:44)
[2017-04-08] MEDS ORDERED: ACETAZOLAMIDE 250 MG TABLET PO ONE (10:00)
[2017-04-08] MEDS ORDERED: BETADINE 5% OPHTHALMIC 30 ML OP ONE (10:00)
[2017-04-08] MEDS ORDERED: BSS 500 ML, Fortaz/Tazicef 1 GM** 0.2 G IO ONE ×2 (10:00)
[2017-04-08] MEDS ORDERED: LIDOCAINE HCL 1% AMPUL 5 ML IJ ONE (10:00)
[2017-04-08] MEDS ORDERED: Zofran 4 MG/2 ML VIAL IV PRN (10:00)
[2017-04-08] MEDS ORDERED: Epinephrine Preservative Free 1 MG/ML INTRAOP ONE (10:00)
[2017-04-08 11:23] VITALS: BP 115/55; PULSE 69; O2SAT 93
--- NOTE | 2017-04-08 12:13 | OP ---
DATE/TIME OF OPERATION: 04/08/2017 0933 TIME DICTATED: 1151 PREOPERATIVE DIAGNOSIS: Senile cataract of left eye. POSTOPERATIVE DIAGNOSIS: Senile cataract of left eye. SURGEON: River Macias MD HOLISTIC HEALTH PRACTITIONER: None. OPERATION: Cataract extraction of left eye with an intraocular lens implant. STANDARD COMPLEX __X____ ANESTHESIA: MAC. __X___ Monitored anesthesia care in combination with topical and intra-cameral anesthesia (because of the established specific risk of reflux, arrhythmias, or an anxiety attack associated with ocular manipulation as well as difficulty of the ranch supervisor to manage such potentially catastrophic events while simultaneously attempting to complete the surgical procedure, it was deemed necessary for the patient's safety to have an anesthesiologist or a nurse caustic mixer present during the procedure whenever possible. The anesthesiologist or the nurse caustic mixer was utilized to monitor and regulate the intravenous sedation of the patient, so the patient was cooperative, relaxed, and comfortable). Topical anesthesia using Tetracaine eye drops together with intra cameral anesthesia using Lidocaine 1% MPF. The nurse was utilized to monitor the patient. ANESTHESIA PROVIDER: Hal Bar CRNA. COMPLICATIONS: None. BLOOD LOSS: None. INDICATIONS: The patient is undergoing cataract surgery in the hopes of eliminating the visual complaints and difficulty. PROCEDURE: After arriving at the facility's outpatient surgery area, an IV was started; the patient was given 5 mg of p.o. Versed. (If an anesthesia provider was not monitoring the patient) The patient was then given topical anesthetic Tetracaine eye drops. A cotton pellet was soaked into a solution of a combination of Zymaxid 0.5%, Theodore-Synephrine 2.5% and Ocufen (other drops might have been substituted referenced in the patient's record). The pellet was inserted by the RN into the lower conjunctival cul-de-sac with a sterile forceps and left for 20 minutes. The pellet was then removed by the RN with a sterile forceps before taking the patient to the operating room. The preoperative area nurse identified the patient and marked the correct eye to be operated on. I identified the correct eye to be operated on and marked it appropriately in the outpatient surgery area. The patient was then taken into the operating room. Tetracaine eye drops were installed again in the correct eye. The eyelids and the lashes and the lid margins were scrubbed with Betadine solution. One drop of the diluted Betadine solution was placed in the conjunctival cul-de-sac for 45 seconds and then was irrigated. A drop of Tetracaine Gel was placed in the conjunctival cul-de-sac. The patient's forehead was taped to secure it during the procedure. The patient was monitored. The patient was then draped in the usual way for this procedure. An eye speculum was used to separate the eyelids. The eye was then fixated and a temporal 2.5 mm incision was made in the clear cornea temporally at the limbus. Through the incision, 0.25 cc of 1% non-preserved lidocaine was injected into the anterior chamber for intracameral anesthesia. The anterior chamber was then filled with viscoelastic. ___X__ The pupil was small. I felt that it would be safer to mechanically dilate the pupil. A Malyugin ring was used at this point which dilated the pupil. That was removed at the end of the procedure prior to aspiration of the viscoelastic from the anterior chamber and posterior to the intraocular lens implant. The cataract had a great amount of cortical changes. That rendered seeing the anterior capsule difficult for a safe performance of an anterior capsulotomy. I injected an air bubble into the anterior chamber. I then injected 1 ML of vision blue solution into the anterior chamber. The vision blue solution was irrigated from the anterior chamber after 30 seconds. The anterior capsule was stained which facilitated performing the anterior capsulotomy safely. After that was completed, a cystotome was introduced into the anterior chamber and a round anterior capsulotomy was performed. The capsule was removed by a forceps. Hydrodissection was next carried utilizing a 25-gauge cannula and balanced salt solution to delineate the cortical material from the capsule and the nucleus from the cortical material. The nucleus was rotated freely into the capsular bag with no difficulty. The phaco tip of the [employer] Phacoemulsifier was introduced into the anterior chamber and two grooves were made into the nucleus 90 degrees apart. Using two spatulas resulted into the nucleus being fractured into four quadrants. The phaco tip was then used to remove each quadrant of the nucleus. Viscoelastic was used during this process to protect the corneal endothelium. Once the entire nucleus was removed, the phaco tip then was removed and the irrigation tip was introduced into the eye and the cortex was removed. The posterior capsule was polished. It was noticed that there was a tear into the posterior capsule with few vitreous strands into the pupil plan. An anterior vitrectomy was performed. A 25.50 diopter, [id number], posterior chamber lens implant, was inspected and found to be grossly normal. The implant was inserted into the implant injector cartridge; Viscoelastic again was introduced into the anterior chamber, which filled the capsular bag. The implant injector's cartridge tip was placed at the limbal wound and the posterior chamber implant was released into the capsular bag and rotated appropriately. The implant was found to be into the capsular bag and it was centered. __X__ 0.2 ml of Tri-Moxi was introduced via 27 gauge cannula into the vitreous cavity through the ciliary processes. Viscoelastic was aspirated from the anterior chamber and posterior to the intraocular lens implant from the capsular bag using the irrigating tip. The anterior chamber was irrigated and filled with 5 cc antibiotic solution (500 cc of BSS plus 2 ml of Fortaz 100 mg/ml) ( if patient was not allergic to the medication). The lips of the corneal incision were hydrated using BSS solution. The anterior chamber was checked and found to be water tight. One drop each of antibiotic, steroid and NSAID drops (refer to chart for drops used) were placed in the conjunctival cul-de-sac of the operated eye. Patient tolerated the procedure quite well and left the operating room in satisfactory condition. NOTE: The cataract was hypermature and totally white in color. I injected Vision Blue at the beginning of the procedure to identify the anterior capsule so it would be easier and safer to do anterior capsulotomy. DISCHARGE SUMMARY: The patient was released in stable condition. The patient and those with the patient were given an instruction sheet as of how to care for the eye after surgery as well as counseling on any abnormal laboratory studies by the postoperative RN. The patient was also given an appointment card for follow-up in the office and is to call immediately for any difficulties including but not limited to pain in the eye, decreased vision, discharge from the eye, headache and or fever. DISCHARGE DIAGNOSIS: Pseudophakia of left eye.
== END 2017-04-08 11:18 | disposition home or self-care (01) ==
LOC: SDC 07:34
PROVIDERS: ATTEND Ophthalmology
PROC: 08RK3JZ Replacement of Left Lens with Synthetic Substitute, Percutaneous Approach (ICD-10-PCS; principal; 2017-04-08)
PROC: 08B53ZZ Excision of Left Vitreous, Percutaneous Approach (ICD-10-PCS; 2017-04-08)
DX: H25.9 Unspecified age-related cataract (principal); I10 Essential (primary) hypertension; E07.9 Disorder of thyroid, unspecified; F32.9 Major depressive disorder, single episode, unspecified; G20 Parkinson's disease
CPT/HCPCS: 66982 ×2; 94640; 67005; C1780; 00142; J0171; J2250; J2704; A9270-GY

== ENCOUNTER 2017-05-13 08:04 | Day surgery (SDC) | payer MEDICARE ==
[~2017-05-13 08:04] MED LIST: Lactated Ringers 1,000 ML IV ONE
[2017-05-13] MEDS ORDERED: DIPRIVAN 200 MG/20 ML IV ONE (08:05)
[2017-05-13] MEDS: TETRACAINE 0.5% STERI-UNIT SOL OP ONE ×2 (08:51→09:23)
[2017-05-13] MEDS ORDERED: Ak-Dilate OPHTHALMIC*** 0.71 ML, Cyclogyl 1% OPHTH SOL 5 ML 0.71 ML, GATIFLOXACIN 0.5% ... OP ONE ×4 (09:00)
[2017-05-13] MEDS ORDERED: TETRACAINE 0.5% STERI-UNIT SOL OP ONE (09:00)
[2017-05-13] MEDS ORDERED: Lactated Ringers 1,000 ML IV SCH (09:00)
[2017-05-13] MEDS ORDERED: BSS 500 ML, Fortaz/Tazicef 1 GM** 0.2 G IO ONE ×2 (10:00)
[2017-05-13] MEDS ORDERED: Epinephrine Preservative Free 1 MG/ML INTRAOP ONE (10:00)
[2017-05-13] MEDS ORDERED: LIDOCAINE HCL 1% AMPUL 5 ML IJ ONE (10:00)
[2017-05-13] MEDS ORDERED: Zofran 4 MG/2 ML VIAL IV PRN (10:00)
[2017-05-13] MEDS ORDERED: ACETAZOLAMIDE 250 MG TABLET PO ONE (10:00)
[2017-05-13] MEDS ORDERED: BETADINE 5% OPHTHALMIC 30 ML OP ONE (10:00)
[2017-05-13 11:30] VITALS: BP 109/76; PULSE 65; O2SAT 100
--- NOTE | 2017-05-13 13:25 | OP ---
DATE/TIME OF OPERATION: 05/13/2017 0959 TIME DICTATED: 1202 PREOPERATIVE DIAGNOSIS: Senile cataract of right eye. POSTOPERATIVE DIAGNOSIS: Senile cataract of right eye. SURGEON: River Macias MD PARENT COACH: None. OPERATION: Cataract extraction of right eye with an intraocular lens implant. STANDARD COMPLEX __X____ ANESTHESIA: MAC. ___X___ Monitored anesthesia care in combination with topical and intra-cameral anesthesia (because of the established specific risk of reflux, arrhythmias, or an anxiety attack associated with ocular manipulation as well as difficulty of the billing department supervisor to manage such potentially catastrophic events while simultaneously attempting to complete the surgical procedure, it was deemed necessary for the patient's safety to have an anesthesiologist or a nurse asset analyst present during the procedure whenever possible. The anesthesiologist or the nurse asset analyst was utilized to monitor and regulate the intravenous sedation of the patient, so the patient was cooperative, relaxed, and comfortable). Topical anesthesia using Tetracaine eye drops together with intra cameral anesthesia using Lidocaine 1% MPF. The nurse was utilized to monitor the patient. ANESTHESIA PROVIDER: Adi Heredia CRNA. COMPLICATIONS: None. BLOOD LOSS: None. INDICATIONS: The patient is undergoing cataract surgery in the hopes of eliminating the visual complaints and difficulty. PROCEDURE: After arriving at the facility's outpatient surgery area, an IV was started; the patient was given 5 mg of p.o. Versed. (If an anesthesia provider was not monitoring the patient) The patient was then given topical anesthetic Tetracaine eye drops. A cotton pellet was soaked into a solution of a combination of Zymaxid 0.5%, Theodore-Synephrine 2.5% and Ocufen (other drops might have been substituted referenced in the patient's record). The pellet was inserted by the RN into the lower conjunctival cul-de-sac with a sterile forceps and left for 20 minutes. The pellet was then removed by the RN with a sterile forceps before taking the patient to the operating room. The preoperative area nurse identified the patient and marked the correct eye to be operated on. I identified the correct eye to be operated on and marked it appropriately in the outpatient surgery area. The patient was then taken into the operating room. Tetracaine eye drops were installed again in the correct eye. The eyelids and the lashes and the lid margins were scrubbed with Betadine solution. One drop of the diluted Betadine solution was placed in the conjunctival cul-de-sac for 45 seconds and then was irrigated. A drop of Tetracaine Gel was placed in the conjunctival cul-de-sac. The patient's forehead was taped to secure it during the procedure. The patient was monitored. The patient was then draped in the usual way for this procedure. An eye speculum was used to separate the eyelids. The eye was then fixated and a temporal 2.5 mm incision was made in the clear cornea temporally at the limbus. Through the incision, 0.25 cc of 1% non-preserved lidocaine was injected into the anterior chamber for intracameral anesthesia. The anterior chamber was then filled with viscoelastic. ___X__ The pupil was small. I felt that it would be safer to mechanically dilate the pupil. A Malyugin ring was used at this point which dilated the pupil. That was removed at the end of the procedure prior to aspiration of the viscoelastic from the anterior chamber and posterior to the intraocular lens implant. The cataract had a great amount of cortical changes. That rendered seeing the anterior capsule difficult for a safe performance of an anterior capsulotomy. I injected an air bubble into the anterior chamber. I then injected 1 ML of vision blue solution into the anterior chamber. The vision blue solution was irrigated from the anterior chamber after 30 seconds. The anterior capsule was stained which facilitated performing the anterior capsulotomy safely. After that was completed, a cystotome was introduced into the anterior chamber and a round anterior capsulotomy was performed. The capsule was removed by a forceps. Hydrodissection was next carried utilizing a 25-gauge cannula and balanced salt solution to delineate the cortical material from the capsule and the nucleus from the cortical material. The nucleus was rotated freely into the capsular bag with no difficulty. The phaco tip of the [facility] Phacoemulsifier was introduced into the anterior chamber and two grooves were made into the nucleus 90 degrees apart. Using two spatulas resulted into the nucleus being fractured into four quadrants. The phaco tip was then used to remove each quadrant of the nucleus. Viscoelastic was used during this process to protect the corneal endothelium. Once the entire nucleus was removed, the phaco tip then was removed and the irrigation tip was introduced into the eye and the cortex was removed. The posterior capsule was polished. It was noticed that there was a tear into the posterior capsule with few vitreous strands into the pupil plan. An anterior vitrectomy was performed. A 24.50 diopter, [id number], posterior chamber lens implant, was inspected and found to be grossly normal. The implant was inserted into the implant injector cartridge; Viscoelastic again was introduced into the anterior chamber, which filled the capsular bag. The implant injector's cartridge tip was placed at the limbal wound and the posterior chamber implant was released into the capsular bag and rotated appropriately. The implant was found to be into the capsular bag and it was centered. __X__ 0.2 ml of Tri-Moxi was introduced via 27 gauge cannula into the vitreous cavity through the ciliary processes. Viscoelastic was aspirated from the anterior chamber and posterior to the intraocular lens implant from the capsular bag using the irrigating tip. The anterior chamber was irrigated and filled with 5 cc antibiotic solution (500 cc of BSS plus 2 ml of Fortaz 100 mg/ml) ( if patient was not allergic to the medication). The lips of the corneal incision were hydrated using BSS solution. The anterior chamber was checked and found to be water tight. One drop each of antibiotic, steroid and NSAID drops (refer to chart for drops used) were placed in the conjunctival cul-de-sac of the operated eye. Patient tolerated the procedure quite well and left the operating room in satisfactory condition. DISCHARGE SUMMARY: The patient was released in stable condition. The patient and those with the patient were given an instruction sheet as of how to care for the eye after surgery as well as counseling on any abnormal laboratory studies by the postoperative RN. The patient was also given an appointment card for follow-up in the office and is to call immediately for any difficulties including but not limited to pain in the eye, decreased vision, discharge from the eye, headache and or fever. DISCHARGE DIAGNOSIS: Pseudophakia of right eye.
== END 2017-05-13 12:14 | disposition home or self-care (01) ==
LOC: SDC 08:04
PROVIDERS: ATTEND Ophthalmology
PROC: 08RJ3JZ Replacement of Right Lens with Synthetic Substitute, Percutaneous Approach (ICD-10-PCS; principal; 2017-05-13)
PROC: 08B43ZZ Excision of Right Vitreous, Percutaneous Approach (ICD-10-PCS; 2017-05-13)
DX: H25.9 Unspecified age-related cataract (principal); I10 Essential (primary) hypertension; E07.9 Disorder of thyroid, unspecified; G20 Parkinson's disease; F32.9 Major depressive disorder, single episode, unspecified; Z79.899 Other long term (current) drug therapy
CPT/HCPCS: 66982 ×2; 67005; C1780; 00142; J0171; J2704; A9270-GY

== ENCOUNTER 2017-08-21 13:09 | Observation (INO) | payer MEDICARE ==
[2017-08-21] MEDS ORDERED: Sodium Chloride 0.9% 1000 ML 1,000 ML ONE (13:31)
[2017-08-21] MEDS ORDERED: Sodium Chloride 0.9% 1000 ML 1,000 ML IV STA (13:50)
[2017-08-21] MEDS ORDERED: Zofran 4 MG/2 ML VIAL IV ONE (13:50)
--- NOTE | 2017-08-21 13:50 | ERPHSYRPT ---
- History of Present Illness Time Seen by Provider: 08/21/17 13:45 Source: patient Exam Limitations: no limitations Patient Subjective Stated Complaint: fever and body aches since friday Triage Nursing Assessment: to room per w/c. skin warm dry pale. resp nonlabored. on oxygen at 2L from home. no cough noted Physician History: The patient is a 52-year-old female who complains of fever, body aches, lightheadedness, nausea, vomiting, and diarrhea for the last 4 days. She has abdominal pain as well. She denies chest pain or shortness of breath. She denies sore throat or cough. Her past medical history is significant for hypertension, restless legs, hypothyroidism, asthma, tubal ligation, colostomy bag placement for extensive diverticulitis. Timing/Duration: day(s) (4) Severity: severe Modifying Factors: Improves With: nothing Associated Symptoms: nausea, vomiting, abdominal pain, fever, malaise, weakness Allergies/Adverse Reactions: hydrocodone [From Vicodin] Allergy (Severe, Verified 08/21/17 13:35) Vomiting codeine Allergy (Verified 08/21/17 13:35) dizzy, n&v Home Medications: Amlodipine Besylate 5 mg [Norvasc 5 mg] 5 mg PO DAILY 07/14/14 [History] Hydrochlorothiazide 25 mg [hydroDIURIL 25 MG] 25 mg PO DAILY 07/14/14 [ History] Lisinopril [Zestril] 20 mg PO DAILY 07/14/14 [History] Sertraline HCl 100 mg [Zoloft 100 MG] 100 mg PO DAILY 02/01/15 [History] Pramipexole Di-HCl [Mirapex] 0.5 mg PO QHS 01/03/17 [History] Gabapentin [Neurontin] 300 mg PO .5XDAILY 01/04/17 [History] Levothyroxine Sodium 25 Mcg [Synthroid 25 Mcg] 25 mcg PO DAILY 04/07/17 [ History] Albuterol 8 gm Mdi Hfa [Ventolin Hfa MDI] 18 gm IH QID PRN 08/07/17 [ History] Naproxen 500 mg [Naprosyn 500 MG] 500 mg PO BIDPRN PRN 08/21/17 [History] Tizanidine HCl 4 mg [Zanaflex 4 MG] 4 mg PO DAILY 08/21/17 [History] Hx Tetanus, Diphtheria Vaccination/Date Given: Yes Hx Influenza Vaccination/Date Given: No Hx Pneumococcal Vaccination/Date Given: No - Review of Systems Constitutional: Fever, Lethargy, Weakness Eyes: No Symptoms Ears, Nose, & Throat: No Symptoms Respiratory: No Cough, No Dyspnea Cardiac: No Chest Pain, No Edema, No Syncope Abdominal/Gastrointestinal: Abdominal Pain, Nausea, Vomiting, Diarrhea Genitourinary Symptoms: No Dysuria Musculoskeletal: No Back Pain, No Neck Pain Skin: No Rash Neurological: No Dizziness, No Focal Weakness, No Sensory Changes Psychological: No Symptoms Endocrine: No Symptoms Hematologic/Lymphatic: No Symptoms, Easy Bruising All Other Systems: Reviewed and Negative - Past Medical History Pertinent Past Medical History: Yes Neurological History: No Pertinent History ENT History: Cataracts Cardiac History: Hypertension Respiratory History: Asthma, Pneumonia, Other Endocrine Medical History: No Pertinent History Musculoskeletal History: No Pertinent History GI Medical History: Colitis, Diverticulitis, Polyps, Other History: No Pertinent History Psycho-Social History: Anxiety, Depression Female Reproductive Disorders: No Pertinent History Other Medical History: RESTLESS LEG SYNDROME, PTSd. colostomy - Past Surgical History Past Surgical History: Yes Neuro Surgical History: No Pertinent History Cardiac: No Pertinent History Respiratory: No Pertinent History Gastrointestinal: Colon Resection Genitourinary: No Pertinent History Musculoskeletal: No Pertinent History Female Surgical History: Tubal Ligation, Other Other Surgical History: infected milk duct in left breast in 2013 had to have it removed. tubal ligation, jaw surgery 33 years ago - Social History Smoking Status: Current every day smoker How long have you smoked: 25 Exposure to second hand smoke: Yes Drug Use: none Patient Lives Alone: No - Female History Hx Now: No - Nursing Vital Signs Nursing Vital Signs: Initial Vital Signs Temperature 97.9 F 08/21/17 13:21 Pulse Rate 91 H 08/21/17 13:21 Respiratory Rate 16 08/21/17 13:21 Blood Pressure 74/49 08/21/17 13:21 O2 Sat by Pulse Oximetry 95 08/21/17 13:21 Pain Scale Pain Intensity 8 - Physical Exam General Appearance: moderate distress, lethargy Eye Exam: PERRL/EOMI, eyes nml inspection Ears, Nose, Throat Exam: normal ENT inspection, TMs normal, pharynx normal, moist mucous membranes Neck Exam: normal inspection, non-tender, supple, full range of motion Respiratory Exam: normal breath sounds, lungs clear, No respiratory distress Cardiovascular Exam: regular rate/rhythm, normal heart sounds, normal peripheral pulses Gastrointestinal/Abdomen Exam: tenderness (epigastric and LUQ) Pelvic Exam: not done Rectal Exam: not done Back Exam: normal inspection, normal range of motion, No CVA tenderness, No vertebral tenderness Extremity Exam: normal inspection, normal range of motion, pelvis stable Neurologic Exam: alert, oriented x 3, cooperative, normal mood/affect, nml cerebellar function, nml station & gait, sensation nml, No motor deficits Skin Exam: normal color, warm, dry, No rash Lymphatic Exam: No adenopathy SpO2 Interpretation: normal SpO2: 95 Oxygen Delivery: Nasal Cannula - CT Exams Abdomen/Pelvis CT Interpretation: Tele-radiologist Report, Other (distended gall bladder, consider GB ultrasound per DR Rasmussen.) - Radiology Ultrasound Exam Gallbladder Ultrasound: tele radiology report, gall bladder stones (per Dr Rasmussen) Ordered Tests: Active Orders 24 hr Category Date Time Status IV Insertion STAT Care 08/21/17 13:50 Active ABDOMEN AND PELVIS W/0 CONTRAS [CT] Stat Exams 08/21/17 13:50 Completed GALLBLADDER [US] Stat Exams 08/21/17 15:03 Completed AMYLASE Stat Lab 08/21/17 14:21 Completed CBC W DIFF Stat Lab 08/21/17 13:50 Completed CMP Stat Lab 08/21/17 14:21 Completed CULTURE,URINE Stat Lab 08/21/17 14:21 Received HCG QUALITATIVE,SERUM Stat Lab 08/21/17 14:21 Completed HCG, Quantitative (Inhouse) Stat Lab 08/21/17 15:30 Completed LIPASE Stat Lab 08/21/17 14:21 Completed Lactic Acid Stat Lab 08/21/17 13:50 Completed Manual Differential NC Stat Lab 08/21/17 13:50 Completed UA W/ MICROSCOPIC Stat Lab 08/21/17 14:21 Completed Medication Summary Discontinued Medications Generic Name Dose Route Start Last Admin Trade Name Freq PRN Reason Stop Dose Admin Sodium Chloride Confirm 08/21/17 13:31 Sodium Chloride 0.9% 1000 Ml Administered 08/21/17 13:32 Dose 1,000 mls @ ud .ROUTE .STK-MED ONE Sodium Chloride 1,000 mls @ 999 mls/hr 08/21/17 13:50 08/21/17 14:02 Sodium Chloride 0.9% 1000 Ml IV 08/21/17 14:50 999 mls/hr .Q1H1M STA Administration Ondansetron HCl 4 mg 08/21/17 13:50 08/21/17 14:18 Zofran 4 Mg/2 Ml Vial IV 08/21/17 13:51 4 mg STAT ONE Administration Ondansetron HCl Confirm 08/21/17 14:14 Zofran 4 Mg/2 Ml Vial Administered 08/21/17 14:15 Dose 4 mg .ROUTE .K-MED ONE Lab/Rad Data: Laboratory Result Diagrams 08/21/17 13:50 08/21/17 14:21 Laboratory Results 08/21/17 08/21/17 08/21/17 Range/Units 15:30 14:28 14:21 WBC (4.0-10.5) K/mm3 RBC (4.1-5.4) M/mm3 Hgb (12.0-16.0) gm/dl Hct (35-47) % MCV (78-100) fl MCH (26-32) pg MCHC (32-36) g/dl RDW (11.5-14.0) % Plt Count (150-450) K/mm3 MPV (6-9.5) fl Segmented Neutrophils (36.0-66.0) % Band Neutrophils (0.0-2.0) % Lymphocytes (Manual) (24-44) % Monocytes (Manual) (0.0-12.0) % Differential Comment Platelet Estimate (NORMAL) Polychromasia Macrocytosis Sodium (136-145) mEq/L Potassium (3.5-5.1) mEq/L Chloride (98-107) mEq/L Carbon Dioxide (21-32) mEq/L Anion Gap (5-15) MEQ/L BUN (9-20) mg/dL Creatinine (0.55-1.30) mg/dl Estimated GFR ML/MIN Glucose (70-110) MG/DL Lactic Acid (0.4-2.0) Calcium (8.5-10.1) mg/dL Total Bilirubin (0.2-1.0) mg/dL AST (15-37) U/L ALT (12-78) U/L Alkaline Phosphatase (46-116) U/L Serum Total Protein (6.4-8.2) gm/dL Albumin (3.4-5.0) g/dL Amylase (25-115) U/L Lipase (73-393) U/L Beta HCG, Quant 14 H (0-6) IU/L Serum , Qual POSITIVE (Negative) Ur Collection Type Urine Color (YELLOW) Urine Appearance (CLEAR) Urine pH (5-6) Ur Specific Sandy (1.005-1.025) Urine Protein (Negative) Urine Ketones (NEGATIVE) Urine Blood (0-5) Victorino/ul Urine Nitrite (NEGATIVE) Urine Bilirubin (NEGATIVE) Urine Urobilinogen (0-1) mg/dL Ur Leukocyte Esterase (NEGATIVE) Urine Microscopic RBC (0-2) /HPF Urine Microscopic WBC (0-5) /HPF Ur Epithelial Cells (FEW) /HPF Calcium Oxalate Crystal (NEGATIVE) /HPF Urine Bacteria (NEGATIVE) /HPF Urine Culture Reflexed (NO) Urine Glucose (NEGATIVE) mg/dL Influenza Type A Ag NEGATIVE (NEGATIVE) Influenza Type B Ag NEGATIVE (NEGATIVE) RSV (PCR) NEGATIVE (Negative) Specimen Received 08/21/17 08/21/17 08/21/17 Range/Units 14:21 14:21 13:50 WBC (4.0-10.5) K/mm3 RBC (4.1-5.4) M/mm3 Hgb (12.0-16.0) gm/dl Hct (35-47) % MCV (78-100) fl MCH (26-32) pg MCHC (32-36) g/dl RDW (11.5-14.0) % Plt Count (150-450) K/mm3 MPV (6-9.5) fl Segmented Neutrophils (36.0-66.0) % Band Neutrophils (0.0-2.0) % Lymphocytes (Manual) (24-44) % Monocytes (Manual) (0.0-12.0) % Differential Comment Platelet Estimate (NORMAL) Polychromasia Macrocytosis Sodium 135 L (136-145) mEq/L Potassium 3.6 (3.5-5.1) mEq/L Chloride 97 L (98-107) mEq/L Carbon Dioxide 23.1 (21-32) mEq/L Anion Gap 18.8 H (5-15) MEQ/L BUN 55 H (9-20) mg/dL Creatinine 3.72 H (0.55-1.30) mg/dl Estimated GFR 13 ML/MIN Glucose 121 H (70-110) MG/DL Lactic Acid 1.5 (0.4-2.0) Calcium 9.0 (8.5-10.1) mg/dL Total Bilirubin 0.60 (0.2-1.0) mg/dL AST 11 L (15-37) U/L ALT 13 (12-78) U/L Alkaline Phosphatase 164 H (46-116) U/L Serum Total Protein 8.0 (6.4-8.2) gm/dL Albumin 2.8 L (3.4-5.0) g/dL Amylase 15 L (25-115) U/L Lipase 53 L (73-393) U/L Beta HCG, Quant (0-6) IU/L Serum , Qual (Negative) Ur Collection Type VOID Urine Color DARK YELLOW (YELLOW) Urine Appearance CLOUDY (CLEAR) Urine pH 5.0 (5-6) Ur Specific Sandy 1.025 (1.005-1.025) Urine Protein 30 (Negative) Urine Ketones NEGATIVE (NEGATIVE) Urine Blood 50 (0-5) Victorino/ul Urine Nitrite NEGATIVE (NEGATIVE) Urine Bilirubin MODERATE (NEGATIVE) Urine Urobilinogen NORMAL (0-1) mg/dL Ur Leukocyte Esterase LARGE (NEGATIVE) Urine Microscopic RBC 0-2 (0-2) /HPF Urine Microscopic WBC >100 (0-5) /HPF Ur Epithelial Cells MANY (FEW) /HPF Calcium Oxalate Crystal 0-2 (NEGATIVE) /HPF Urine Bacteria MANY (NEGATIVE) /HPF Urine Culture Reflexed YES (NO) Urine Glucose NEGATIVE (NEGATIVE) mg/dL Influenza Type A Ag (NEGATIVE) Influenza Type B Ag (NEGATIVE) RSV (PCR) (Negative) Specimen Received 08/21/17 1430 08/21/17 Range/Units 13:50 WBC 15.1 H (4.0-10.5) K/mm3 RBC 3.52 L (4.1-5.4) M/mm3 Hgb 10.4 L (12.0-16.0) gm/dl Hct 32.5 L (35-47) % MCV 92.3 (78-100) fl MCH 29.5 (26-32) pg MCHC 32.0 (32-36) g/dl RDW 13.7 (11.5-14.0) % Plt Count 426 (150-450) K/mm3 MPV 9.5 (6-9.5) fl Segmented Neutrophils 64 (36.0-66.0) % Band Neutrophils 15 H (0.0-2.0) % Lymphocytes (Manual) 18 L (24-44) % Monocytes (Manual) 3 (0.0-12.0) % Differential Comment ABNORMAL Platelet Estimate INCREASED (NORMAL) Polychromasia 2+ Macrocytosis 1+ Sodium (136-145) mEq/L Potassium (3.5-5.1) mEq/L Chloride (98-107) mEq/L Carbon Dioxide (21-32) mEq/L Anion Gap (5-15) MEQ/L BUN (9-20) mg/dL Creatinine (0.55-1.30) mg/dl Estimated GFR ML/MIN Glucose (70-110) MG/DL Lactic Acid (0.4-2.0) Calcium (8.5-10.1) mg/dL Total Bilirubin (0.2-1.0) mg/dL AST (15-37) U/L ALT (12-78) U/L Alkaline Phosphatase (46-116) U/L Serum Total Protein (6.4-8.2) gm/dL Albumin (3.4-5.0) g/dL Amylase (25-115) U/L Lipase (73-393) U/L Beta HCG, Quant (0-6) IU/L Serum , Qual (Negative) Ur Collection Type Urine Color (YELLOW) Urine Appearance (CLEAR) Urine pH (5-6) Ur Specific Sandy (1.005-1.025) Urine Protein (Negative) Urine Ketones (NEGATIVE) Urine Blood (0-5) Victorino/ul Urine Nitrite (NEGATIVE) Urine Bilirubin (NEGATIVE) Urine Urobilinogen (0-1) mg/dL Ur Leukocyte Esterase (NEGATIVE) Urine Microscopic RBC (0-2) /HPF Urine Microscopic WBC (0-5) /HPF Ur Epithelial Cells (FEW) /HPF Calcium Oxalate Crystal (NEGATIVE) /HPF Urine Bacteria (NEGATIVE) /HPF Urine Culture Reflexed (NO) Urine Glucose (NEGATIVE) mg/dL Influenza Type A Ag (NEGATIVE) Influenza Type B Ag (NEGATIVE) RSV (PCR) (Negative) Specimen Received - Progress Progress: improved Progress Note: 08/21/17 14:53 Serum HCG is positive. Pt has TL and is not sexually active for 5 years. We are looking for sample mixup or lab error. Will redraw pt. Discussed with : Edwar Will see patient in: hospital (observation) Counseled pt/family regarding: lab results, diagnosis, rad results - Departure Time of Disposition: 17:35 Departure Disposition: Observation (per Dr Vann) Clinical Impression: UTI (urinary tract infection), Gastroenteritis, Dehydration, Acute renal failure Condition: Stable Critical Care Time: No Referrals: MARGARITA MORSE [Primary Care Provider] -
[2017-08-21] MEDS ORDERED: Zofran 4 MG/2 ML VIAL ONE (14:14)
[2017-08-21 14:18] LABS: Hematocrit 32.5 % (35-47); Hemoglobin 10.4 gm/dl (12.0-16.0); Mean Cell Volume 92.3 fl (78-100); Mean Corpuscular Hemoglobin 29.5 pg (26-32); Mean Platelet Volume 9.5 fl (6-9.5); Platelet Count 426 K/mm3 (150-450); Red Blood Count 3.52 M/mm3 (4.1-5.4); Red Cell Distribution Width 13.7 % (11.5-14.0); White Blood Count 15.1 K/mm3 (4.0-10.5)
[2017-08-21 14:37] LABS: Appearance CLOUDY (CLEAR); Glucose NEGATIVE (NEGATIVE); Ketones NEGATIVE (NEGATIVE); Leukocyte Esterase LARGE (NEGATIVE); Nitrite NEGATIVE (NEGATIVE); Protein,Urine Dip 30 (Negative); Specific Gravity 1.025 (1.005-1.025); Urobilinogen NORMAL mg/dL (0-1)
[2017-08-21 14:38] LABS: Bilirubin MODERATE (NEGATIVE); Blood 50 Ery/ul (0-5); WBC >100 /HPF (0-5)
[2017-08-21 14:39] LABS: ALBUMIN 2.8 g/dL (3.4-5.0); ANION GAP 18.8 MEQ/L (5-15); BILIRUBIN,TOTAL 0.6 mg/dL (0.2-1.0); Bacteria MANY /HPF (NEGATIVE); CALCIUM OXALATE CRYSTALS 0-2 /HPF (NEGATIVE); Carbon Dioxide 23.1 mEq/L (21-32); Creatinine 1 3.72 mg/dl (0.55-1.30); Epithelial Cells MANY /HPF (FEW); Potassium 3.6 mEq/L (3.5-5.1)
[2017-08-21 14:44] LABS: BAND 15 % (0.0-2.0); Lymphocytes 18 % (24-44); Monocyte 3 % (0.0-12.0); Neutrophils 64 % (36.0-66.0); Total Cells Counted 100
[2017-08-21 14:46] LABS: Macrocytosis 1+; Platelet Estimate INCREASED (NORMAL); Polychromasia 2+
[2017-08-21 14:47] LABS: Granulocyte Absolute (ANC) 11.9 (1.4-6.9)
--- NOTE | 2017-08-21 14:58 | XRAY ---
Exam: CT of the abdomen and pelvis without IV contrast from 08/21/2017. CTDI: 23.57 Comparison: CT of the abdomen and pelvis with IV contrast from 02/26/2017. Indication: Nausea/vomiting, diarrhea, fever, sickness. Technique: Non-IV contrast axial images were obtained through the abdomen and pelvis. Reconstructed coronal and sagittal images were created and reviewed. Findings: The lung bases reveals minimal subsegmental atelectasis at the posterior medial aspect of each lung base, right greater than left. However, atelectasis at the posterior medial right lung base appears less pronounced on today's study as compared to 02/26/2017. No visualized air space infiltrates or posterior pleural fluid is seen. There is a suggestion of a minimal hiatal hernia. The liver and spleen appear unremarkable on this non-IV contrast exam. The gallbladder is distended. There is some subtle high attenuation density near the gallbladder neck. Cholelithiasis is not excluded. No gallbladder wall thickening is seen. Consider further evaluation with gallbladder ultrasound. The pancreas and adrenal glands appear unremarkable. The kidneys are remarkable for a 3.5 mm stone overlying the inferior pole of the right kidney representing no change. There is no evidence of renal obstruction or hydronephrosis. The ureters appear normal diameter and reveal no ureterolith. Atherosclerotic vascular calcification is seen within the abdominal aorta. No abdominal aortic aneurysm is seen. I again note some mild prominence of the distal periaortic lymph nodes. This is stable. Vascular calcifications are also seen within the iliac arteries. Evidence of prior midline vertical incision is seen within the lower abdomen and pelvis. Anterior abdominal wall is mildly flaccid. No definite ventral hernia is seen. No free intraperineal air is identified. I again see evidence of a left lower quadrant colostomy. Some minimal high attenuation density is seen in the projection of the cecum and ascending colon which may relate to medication or other bowel lumen contents. There is no bowel obstruction. Sigmoid colon diverticulosis without evidence of diverticulitis is again seen. I see no findings of appendicitis within the right lower quadrant. I believe there is minimal high attenuation material within the appendix as well. The uterus is anteflexed and unremarkable. The urinary bladder is almost empty. No enlarged pelvic lymph nodes are seen. No free intraperitoneal fluid is seen. The inguinal regions appear unremarkable. The skeleton reveals no acute fracture or aggressive bone lesion. I do note mild to moderate lower lumbar facet joint osteoarthritis at the lower 3 lumbar levels. There is also evidence of advanced degenerative disc disease at L5-S1 representing no significant interval change. Vertebral endplate spurring is seen throughout the visualized thoracolumbar spine. I again see a mild mid lumbar rotary levoscoliosis. I again see an old appearing calcification adjacent to the lateral aspect of the left issue tuberosity. Impression: 1. The gallbladder is distended. There is a suggestion of some subtle high attenuation density within the gallbladder neck which might represent gallstones. I see no gallbladder wall thickening. Consider further evaluation with a gallbladder ultrasound. 2. Equivocal evidence of minimal hiatal hernia. 3. 3.5 mm nonobstructing stone within the lower pole of the right kidney representing no change. 4. No evidence of appendicitis. 5. Left lower quadrant colostomy. Distal to this, I see mild sigmoid colon diverticulosis without evidence of diverticulitis. This is unchanged. No other acute process is seen within the abdomen or pelvis. 6. Skeletal findings, as discussed above.
[2017-08-21 15:01] LABS: INFLUENZA A NEGATIVE (NEGATIVE); INFLUENZA B NEGATIVE (NEGATIVE); RESPIRATORY SYNCTIAL VIRUS NEGATIVE (Negative)
--- NOTE | 2017-08-21 16:14 | XRAY ---
Exam: Gallbladder ultrasound from 08/21/2017. Comparison: CT of the abdomen and pelvis without IV contrast from 08/21/2017. Indication: Gallbladder distention with question of gallstones on today's CT. Findings: Transverse images of the pancreas reveal an unremarkable size, shape, and echogenicity. No pancreatic duct distention is seen. The liver appears of unremarkable size and uniform echotexture. No focal hepatic mass or intrahepatic biliary duct distention is seen. Normal hepatopetal blood flow is seen within the portal vein. The gallbladder is of unremarkable size. Multiple non-shadowing isoechoic densities are seen within the gallbladder lumen. I believe these represent gallstones, perhaps mixed with some biliary sludge. The gallbladder wall measures 1.5 mm in thickness which is normal. No pericholecystic edema or fluid is seen. The proximal common bile duct measures 4.8 mm, which is normal. The right kidney measures 10.1 cm x 4.1 cm x 3.8 cm and reveals no renal mass or hydronephrosis. Renal cortical echogenicity and thickness appear unremarkable. Prior small punctate non-shadowing stone within the inferior pole of the right kidney on the CT study is unable to be seen on the current ultrasound. However, CT is more sensitive than ultrasound for small renal stones. Impression: 1. Findings consistent with non-shadowing cholelithiasis, perhaps mixed with some biliary sludge. 2. No gallbladder wall thickening or biliary duct distention is seen. 3. No other significant abnormality detected on the right upper quadrant abdominal ultrasound.
[2017-08-21] MEDS: Sodium Chloride 0.9% 1000 ML 1,000 ML IV SCH (21:29)
[2017-08-21] MEDS ORDERED: ROCEPHIN 1 Gm-D5w 50 ml Bag** 1 G/50 ML IVPB IV ONE (21:41)
[2017-08-21] MEDS: Mirapex 0.5 MG Tablet PO SCH (21:42)
[2017-08-21] MEDS: Nicoderm CQ 21 MG TOP SCH (21:43)
[2017-08-21] MEDS: ROCEPHIN 1 Gm-D5w 50 ml Bag** 1 G/50 ML IVPB IV SCH (21:45)
[2017-08-22 06:00] LABS: BASOPHIL % 0.2 % (0.0-0.4); Basophil (Absolute #) 0.02 (0-0.4); Eosinophil % 1.1 % (0.00-5.0); Eosinophil (Absolute #) 0.11 (0-0.5); Granulocyte Absolute (ANC) 6.18 (1.4-6.9); Granulocytes % 62.4 % (36.0-66.0); Hematocrit 28.2 % (35-47); Hemoglobin 8.9 gm/dl (12.0-16.0); Lymphocytes % 25.2 % (24.0-44.0); Mean Cell Volume 93.4 fl (78-100); Mean Corpuscular Hgb Concent. 31.6 g/dl (32-36); Mean Platelet Volume 9.6 fl (6-9.5); Monocytes % 11.1 % (0.0-12.0); Platelet Count 360 K/mm3 (150-450); Red Blood Count 3.02 M/mm3 (4.1-5.4); Red Cell Distribution Width 13.6 % (11.5-14.0); White Blood Count 9.9 K/mm3 (4.0-10.5)
[2017-08-22 06:10] LABS: Mean Corpuscular Hemoglobin 29.4 pg (26-32)
[2017-08-22 06:31] LABS: ANION GAP 14.1 MEQ/L (5-15); Calcium 8.4 mg/dL (8.5-10.1); Carbon Dioxide 24.2 mEq/L (21-32); Creatinine 1 1.75 mg/dl (0.55-1.30); Potassium 3.5 mEq/L (3.5-5.1)
[2017-08-22] MEDS: PROVENTIL COMMON CANISTER IH SCH ×2 (06:57→18:04)
--- NOTE | 2017-08-22 09:15 | PCM.HP ---
History of Present Illness - Chief Complaint Chief Complaint: dehydration, UTI, gastroenteritis History of Present Illness: is a 52 year old female with ostomy (from benign colon mass removal) who has been ill with vomiting, fever, diarrhea for 5d. Not meghann po. She came to ER, was found to be in renal failure, with UTI, and gallbladder stones. She is unsure if she's had any abd pain because "I felt so sick." This morning her renal function is improved. She is feeling better. Trying CLD currently. - Review of Systems Constitutional: Fever, Weakness Abdominal/Gastrointestinal: Nausea, Vomiting, Diarrhea Genitourinary Symptoms: Dysuria, Other (dark urine) Psychological: No Depression, No Suicidal Ideations All Other Systems: Reviewed and Negative Medications & Allergies Home Medications: Home Medication List Amlodipine Besylate 5 mg [Norvasc 5 mg] 5 mg PO DAILY 07/14/14 [History Confirmed 08/21/17] Hydrochlorothiazide 25 mg [hydroDIURIL 25 MG] 25 mg PO DAILY 07/14/14 [ History Confirmed 08/21/17] Lisinopril [Zestril] 20 mg PO DAILY 07/14/14 [History Confirmed 08/21/17] Sertraline HCl 100 mg [Zoloft 100 MG] 100 mg PO DAILY 02/01/15 [History Confirmed 08/21/17] Pramipexole Di-HCl [Mirapex] 0.5 mg PO QHS 01/03/17 [History Confirmed 08/21/17] Gabapentin [Neurontin] 300 mg PO .5XDAILY 01/04/17 [History Confirmed 08/21/17] Levothyroxine Sodium 25 Mcg [Synthroid 25 Mcg] 25 mcg PO DAILY 04/07/17 [ History Confirmed 08/21/17] Albuterol 8 gm Mdi Hfa [Ventolin Hfa MDI] 18 gm IH QID PRN 08/07/17 [ History Confirmed 08/21/17] Naproxen 500 mg [Naprosyn 500 MG] 500 mg PO BIDPRN PRN 08/21/17 [History Confirmed 08/21/17] Tizanidine HCl 4 mg [Zanaflex 4 MG] 4 mg PO DAILY 08/21/17 [History Confirmed 08/21/17] Allergies/Adverse Reactions: Allergies Allergy/AdvReac Type Severity Reaction Status Date / Time hydrocodone [From Vicodin] Allergy Severe Vomiting Verified 08/21/17 13:35 codeine Allergy dizzy, n&v Verified 08/21/17 13:35 - Past Medical History Past Medical History: Yes Neurological History: No Pertinent History ENT History: Cataracts Cardiac History: Hypertension Respiratory History: Asthma, Pneumonia, Other Endocrine Medical History: No Pertinent History Musculoskelatal History: No Pertinent History GI Medical History: Colitis, Diverticulitis, Polyps, Other History: No Pertinent History Pyscho-Social History: Anxiety, Depression Reproductive Disorders: No Pertinent History Comment: RESTLESS LEG SYNDROME, PTSD. colostomy - Female History Are you now?: No - Past Surgical History Past Surgical History: Yes Neuro Surgical History: No Pertinent History Cardiac History: No Pertinent History Respiratory Surgery: No Pertinent History GI Surgical History: Colon Resection Genitourinary Surgical Hx: No Pertinent History Musculskeletal Surgical Hx: No Pertinent History Female Surgical History: Tubal Ligation, Other Other Surgical History: infected milk duct in left breast in 2013 had to have it removed. tubal ligation, jaw surgery 33 years ago - Social History Smoking Status: Current every day smoker How long have you smoked: 25 years Exposure to second hand smoke: Yes Alcohol: None Drug Use: none - Physical Exam Vital Signs: Vital Signs - 24 hr Temp Pulse Resp BP Pulse Ox 08/22/17 07:35 98.5 F 79 16 102/59 97 08/22/17 06:59 84 20 92 L 08/22/17 04:00 98.4 F 73 17 111/59 96 08/22/17 00:00 98.2 F 67 17 103/52 99 08/21/17 23:26 75 18 94 L 08/21/17 20:47 98.1 F 83 18 94/61 97 08/21/17 18:01 80 18 94/66 97 08/21/17 17:45 95 08/21/17 16:55 97.9 F 79 18 106/56 97 08/21/17 16:22 79 18 92/63 97 08/21/17 14:16 80 16 87/47 97 08/21/17 13:21 97.9 F 91 H 16 74/49 95 Oxygen-Last 24 hours O2 Percentage 2 Liters = 28% O2 Percentage 2 Liters = 28% O2 Percentage 2 Liters = 28% O2 Percentage 2 Liters = 28% O2 Percentage 2 Liters = 28% General Appearance: no apparent distress, alert Neurologic Exam: oriented x 3, cooperative Eye Exam: eyes nml inspection Ears, Nose, Throat Exam: moist mucous membranes Neck Exam: normal inspection, non-tender, No lymphadenopathy Respiratory Exam: normal breath sounds, lungs clear, No crackles/rales, No rhonchi, No wheezing Cardiovascular Exam: regular rate/rhythm, normal heart sounds, No murmur Gastrointestinal/Abdomen Exam: soft, normal bowel sounds, No tenderness, No distention, No mass Back Exam: normal inspection, No rash Extremity Exam: normal inspection, No pedal edema, No swelling Skin Exam: normal color, warm, dry, No rash Results - Labs Lab/Micro Results: Lab Results-Last 24 Hours 08/22/17 08/22/17 Range/Units 05:57 05:57 WBC 9.9 (4.0-10.5) K/mm3 RBC 3.02 L (4.1-5.4) M/mm3 Hgb 8.9 L (12.0-16.0) gm/dl Hct 28.2 L (35-47) % MCV 93.4 (78-100) fl MCH 29.4 (26-32) pg MCHC 31.6 L (32-36) g/dl RDW 13.6 (11.5-14.0) % Plt Count 360 (150-450) K/mm3 MPV 9.6 H (6-9.5) fl Gran % 62.4 (36.0-66.0) % Lymphocytes % 25.2 (24.0-44.0) % Monocytes % 11.1 (0.0-12.0) % Eosinophils % 1.1 (0.00-5.0) % Basophils % 0.2 (0.0-0.4) % Basophils # 0.02 (0-0.4) Sodium 138 (136-145) mEq/L Potassium 3.5 (3.5-5.1) mEq/L Chloride 103 (98-107) mEq/L Carbon Dioxide 24.2 (21-32) mEq/L Anion Gap 14.1 (5-15) MEQ/L BUN 48 H (9-20) mg/dL Creatinine 1.75 H (0.55-1.30) mg/dl Estimated GFR 32 ML/MIN Glucose 86 (70-110) MG/DL Calcium 8.4 L (8.5-10.1) mg/dL - Other Procedures and Tests Respiratory Therapy 08/21/17 22:45 Respiratory MDI BID Assessment/Plan (1) Acute renal failure Current Visit: Yes Status: Acute Assessment & Plan: Improved today. Advised should stay on IVF and recheck labs in a.m. (2) Dehydration Current Visit: Yes Status: Acute Assessment & Plan: improving. Code(s): E86.0 - DEHYDRATION (3) Gastroenteritis Current Visit: Yes Status: Acute Assessment & Plan: try the CLD< if tolerates ok then increase to FLD for lunch Code(s): K52.9 - NONINFECTIVE GASTROENTERITIS AND COLITIS, UNSPECIFIED (4) UTI (urinary tract infection) Current Visit: Yes Status: Acute Qualifiers: Urinary tract infection type: acute cystitis Hematuria presence: without hematuria Qualified Code(s): N30.00 - Acute cystitis without hematuria Assessment & Plan: on IV rocephin. Code(s): N39.0 - URINARY TRACT INFECTION, SITE NOT SPECIFIED (5) Cholelithiases Current Visit: Yes Status: Acute Qualifiers: Cholelithiasis location: gallbladder Cholecystitis presence: without cholecystitis Biliary obstruction: without biliary obstruction Qualified Code(s): K80.20 - Calculus of gallbladder without cholecystitis without obstruction Assessment & Plan: will refer to surgery outpatient if indicated.
[2017-08-22] MEDS: Sodium Chloride 0.9% 1000 ML 1,000 ML IV SCH ×2 (10:07→18:41)
[2017-08-22] MEDS: ROCEPHIN 1 Gm-D5w 50 ml Bag** 1 G/50 ML IVPB IV SCH (10:08)
[2017-08-22] MEDS: Zofran 4 MG/2 ML VIAL IV PRN ×2 (10:10→18:40)
[2017-08-22] MEDS: MORPHINE SULFATE 4 MG INJ IV PRN ×2 (10:11→18:40)
[2017-08-22] MEDS ORDERED: PROVENTIL COMMON CANISTER IH PRN (10:13)
[2017-08-22] MEDS ORDERED: Ventolin Hfa MDI IH SCH (10:15)
[2017-08-22] MEDS: ZOLOFT 50 MG TABLET PO SCH (11:22)
[2017-08-22] MEDS: NEURONTIN 300 MG PO SCH ×4 (11:22→22:04)
[2017-08-22] MEDS: NORVASC 5 MG PO SCH (11:22)
[2017-08-22] MEDS: Zestril 20 MG PO SCH ×2 (11:22→11:23)
[2017-08-22] MEDS: Zanaflex 4 MG PO SCH (11:22)
[2017-08-22] MEDS: SYNTHROID 25 MCG PO SCH (11:22)
[2017-08-22] MEDS: Nicoderm CQ 21 MG TOP SCH (21:34)
[2017-08-22] MEDS: Mirapex 0.5 MG Tablet PO SCH (21:34)
[2017-08-23] MEDS: Sodium Chloride 0.9% 1000 ML 1,000 ML IV SCH (05:55)
[2017-08-23 06:29] LABS: BASOPHIL % 0.3 % (0.0-0.4); Basophil (Absolute #) 0.02 (0-0.4); Eosinophil % 2.5 % (0.00-5.0); Eosinophil (Absolute #) 0.19 (0-0.5); Granulocyte Absolute (ANC) 3.94 (1.4-6.9); Granulocytes % 52.2 % (36.0-66.0); Hematocrit 28.2 % (35-47); Hemoglobin 8.7 gm/dl (12.0-16.0); Lymphocytes % 34.5 % (24.0-44.0); Mean Cell Volume 95.3 fl (78-100); Mean Corpuscular Hgb Concent. 30.9 g/dl (32-36); Mean Platelet Volume 9.3 fl (6-9.5); Monocyte (Absolute #) 0.79 (0.0-1.3); Monocytes % 10.5 % (0.0-12.0); Platelet Count 384 K/mm3 (150-450); Red Blood Count 2.96 M/mm3 (4.1-5.4); Red Cell Distribution Width 13.7 % (11.5-14.0); White Blood Count 7.5 K/mm3 (4.0-10.5)
[2017-08-23] MEDS: NEURONTIN 300 MG PO SCH ×2 (06:53→12:08)
[2017-08-23] MEDS: PROVENTIL COMMON CANISTER IH SCH (07:09)
[2017-08-23 07:30] LABS: Mean Corpuscular Hemoglobin 29.3 pg (26-32)
[2017-08-23] MEDS: ROCEPHIN 1 Gm-D5w 50 ml Bag** 1 G/50 ML IVPB IV SCH (09:35)
[2017-08-23] MEDS: NORVASC 5 MG PO SCH (09:36)
[2017-08-23] MEDS: SYNTHROID 25 MCG PO SCH (09:36)
[2017-08-23] MEDS: ZOLOFT 50 MG TABLET PO SCH (09:36)
[2017-08-23] MEDS: Zanaflex 4 MG PO SCH (09:36)
[2017-08-23] MEDS: Zestril 20 MG PO SCH (09:37)
[2017-08-23] MEDS ORDERED: NON-FORMULARY ITEM (Sertraline Hcl 100 Mg [Zoloft 100 Mg] 100 MG) PO SCH (10:00)
[2017-08-23 10:40] LABS: ALBUMIN 2.2 g/dL (3.4-5.0); ALKALINE PHOSPHATASE 121 U/L (46-116); ANION GAP 15.7 MEQ/L (5-15); BLOOD UREA NITROGEN 17 mg/dL (9-20); CHLORIDE 107 mEq/L (98-107); Calcium 8.3 mg/dL (8.5-10.1); Carbon Dioxide 23.1 mEq/L (21-32); Glucose 83 MG/DL (70-110); SGOT/AST 11 U/L (15-37); SGPT/ALT 11 U/L (12-78); SODIUM 142 mEq/L (136-145); Total Protein 6.6 gm/dL (6.4-8.2)
[2017-08-23 12:35] VITALS: BP 88/54; PULSE 82; O2SAT 95
--- NOTE | 2017-08-23 13:34 | PCM.DS ---
Discharge Summary Date of Admission: 08/21/17 20:20 Admitting Physician: PHIL BAILEY Primary Care Provider: MARGARITA MORSE Allergies Allergies hydrocodone [From Vicodin] Allergy (Severe, Verified 08/21/17 13:35) Vomiting codeine Allergy (Verified 08/21/17 13:35) dizzy, n&v Hospital Summary - Hospital Course Hospital Course: Pt is 52 yo female pt of Dr. Morse who came to ER with increased ostomy output and very little po intake - she was found to be in acute renal failure and dx wiht gastroenteritis. She also was found to have UTI and put on Rocephin. Today she is tolerating a soft diet. No vomiting. Renal function is normal. Still having increased liquid output from the ostomy bag. Overall feeling better - no abdominal pain. - Vitals & Intake/Output Vital Signs: Vital Signs Temperature 97.8 F 08/23/17 12:34 Pulse Rate 82 08/23/17 12:34 Respiratory Rate 20 08/23/17 12:34 Blood Pressure 88/54 08/23/17 12:34 O2 Sat by Pulse Oximetry 95 08/23/17 12:34 Oxygen-Last Documented O2 Percentage 2 Liters = 28% Intake & Output: Intake & Output 08/21/17 08/22/17 08/23/17 08/24/17 11:59 11:59 11:59 11:59 Intake Total 1536 4213 240 Output Total 1700 450 Balance 1536 2513 -210 Weight 88 kg - Lab Result Diagrams: 08/23/17 05:33 08/23/17 05:33 Lab Results-Last 24 Hrs: Lab Results-Last 24 Hours 08/23/17 08/23/17 Range/Units 05:33 05:33 WBC 7.5 (4.0-10.5) K/mm3 RBC 2.96 L (4.1-5.4) M/mm3 Hgb 8.7 L (12.0-16.0) gm/dl Hct 28.2 L (35-47) % MCV 95.3 (78-100) fl MCH 29.3 (26-32) pg MCHC 30.9 L (32-36) g/dl RDW 13.7 (11.5-14.0) % Plt Count 384 (150-450) K/mm3 MPV 9.3 (6-9.5) fl Gran % 52.2 (36.0-66.0) % Lymphocytes % 34.5 (24.0-44.0) % Monocytes % 10.5 (0.0-12.0) % Eosinophils % 2.5 (0.00-5.0) % Basophils % 0.3 (0.0-0.4) % Basophils # 0.02 (0-0.4) Sodium 142 (136-145) mEq/L Potassium 4.0 (3.5-5.1) mEq/L Chloride 107 (98-107) mEq/L Carbon Dioxide 23.1 (21-32) mEq/L Anion Gap 15.7 H (5-15) MEQ/L BUN 17 (9-20) mg/dL Creatinine 0.90 (0.55-1.30) mg/dl Estimated GFR > 60 ML/MIN Glucose 83 (70-110) MG/DL Calcium 8.3 L (8.5-10.1) mg/dL Total Bilirubin 0.20 (0.2-1.0) mg/dL AST 11 L (15-37) U/L ALT 11 L (12-78) U/L Alkaline Phosphatase 121 H (46-116) U/L Serum Total Protein 6.6 (6.4-8.2) gm/dL Albumin 2.2 L (3.4-5.0) g/dL - Procedures and Test Procedures and Tests throughout Hospitalization: Therapy Orders & Screens 08/21/17 21:18 RT Screen per Nursing Assess ONCE Comment: Protocol Order Physician Instructions: Greater than 3 points order RT Admission Screen Reason For Exam: Triggered on Admission Diagnosis: dehydration, UTI, gastroenteritis Diagnosis: dehydration, UTI, gastroenteritis Pneumonia: No Home O2: Yes: 2L Asthma: Yes CHF: No Home CPAP/BIPAP: No Home Nebs/MDI: Yes Total Points: 14 Smoking Cessation Education ONCE Comment: Diagnosis: dehydration, UTI, gastroenteritis Smoking Status: Current every day smoker How long have you smoked: 25 years Have you smoked in the past 12 months: Yes Approximately how many cigarettes per day: 10 Do you dip or chew tobacco: No 08/21/17 22:45 Respiratory MDI BID Comment: Diagnosis: dehydration, UTI, gastroenteritis Discharge Exam General Appearance: no apparent distress, alert Neurologic Exam: oriented x 3, cooperative Skin Exam: normal color, warm, dry, No rash Ears, Nose, Throat Exam: moist mucous membranes Respiratory Exam: normal breath sounds, lungs clear, No crackles/rales, No rhonchi, No wheezing Cardiovascular Exam: regular rate/rhythm, normal heart sounds, No murmur Gastrointestinal/Abdomen Exam: soft, normal bowel sounds, other (ostomy bag L abdomen), No tenderness, No guarding, No rebound Extremity Exam: normal inspection, No pedal edema, No swelling Final Diagnosis/Problem List - Final Discharge Diagnosis/Problem (1) Acute renal failure Current Visit: Yes Status: Resolved Assessment & Plan: normal this morning. Discussed fluid intake, she thinks she is drinking plenty to make up for any ostomy losses. (2) Dehydration Current Visit: Yes Status: Resolved (3) Gastroenteritis Current Visit: Yes Status: Resolved Assessment & Plan: No more diarrhea. Will d/c pt to home today. (4) UTI (urinary tract infection) Current Visit: Yes Status: Acute Assessment & Plan: on rocephin IV day #2 today - will send home on 5 more days of keflex. Urine culture E. coli susceptible to keflex. (5) Anemia Current Visit: Yes Status: Acute Assessment & Plan: Hgb down from 10.4 initially to 8.7 today. Probably at least partially dilutional; f/u with PCP for further evaluation. Pt is to get a CBC drawn next week outpatient. (6) Cholelithiases Current Visit: Yes Status: Acute Assessment & Plan: Follow up with PCP regarding gallstones. - Discharge Disposition: Home, Self-Care Condition: Good Prescriptions: New Cephalexin Mh 500 mg [Keflex 500 mg] 500 mg PO QID #28 capsule Continue Amlodipine Besylate 5 mg [Norvasc 5 mg] 5 mg PO DAILY Lisinopril [Zestril] 20 mg PO DAILY Hydrochlorothiazide 25 mg [hydroDIURIL 25 MG] 25 mg PO DAILY Sertraline HCl 100 mg [Zoloft 100 MG] 100 mg PO DAILY Pramipexole Di-HCl [Mirapex] 0.5 mg PO QHS Gabapentin [Neurontin] 300 mg PO .5XDAILY Levothyroxine Sodium 25 Mcg [Synthroid 25 Mcg] 25 mcg PO DAILY Albuterol 8 gm Mdi Hfa [Ventolin Hfa MDI] 18 gm IH QID PRN Tizanidine HCl 4 mg [Zanaflex 4 MG] 4 mg PO DAILY Naproxen 500 mg [Naprosyn 500 MG] 500 mg PO BIDPRN PRN PRN Reason: Pain Follow up with: MARGARITA MORSE [Primary Care Provider] - 1 Week
== END 2017-08-23 16:00 | disposition home or self-care (01) ==
LOC: ED 13:09 → MED SURG 20:20
PROVIDERS: ADMIT Family Medicine; ATTEND Family Medicine
DX: E86.0 Dehydration (principal); K52.9 Noninfective gastroenteritis and colitis, unspecified; N30.00 Acute cystitis without hematuria; D64.9 Anemia, unspecified; K80.20 Calculus of gallbladder without cholecystitis without obstruction; I10 Essential (primary) hypertension; J45.909 Unspecified asthma, uncomplicated; F41.8 Other specified anxiety disorders; F43.10 Post-traumatic stress disorder, unspecified; Z93.3 Colostomy status; Z79.899 Other long term (current) drug therapy; F17.200 Nicotine dependence, unspecified, uncomplicated
CPT/HCPCS: 36000; 36415; 74176; 76705; 80048; 80053; 81000; 82150; 83605; 83690; 84702; 84703; 85025; 87077; 87086; 87186; 87631; 93268; 94640; 94760; 99285; G0378; J0696; J2270; J2405; A9270-GY

== ENCOUNTER 2022-03-26 11:03 | Emergency (ER) | payer MEDICARE ==
[2022-03-26] MEDS ORDERED: NEURONTIN PO STA (11:08)
[2022-03-26] MEDS ORDERED: Requip 0.5 MG PO STA (11:09)
--- NOTE | 2022-03-26 11:20 | ERPHSYRPT ---
- History of Present Illness Time Seen by Provider: 03/26/22 11:10 Source: patient Exam Limitations: no limitations Patient Subjective Stated Complaint: PT states "I am out of my gabapentin and I have had no sleep for restless leg and I cannot stand still." Triage Nursing Assessment: Pt presented alert and oriented X 3, skin pwd Pt ambulates with an uright gait, unable to sit still, fidgeing and walking aorund the room Physician History: Patient is a 57-year-old female presents to our ED via EMS for withdrawal and medication refill. Patient states she has a history of restless leg syndrome. Patient takes Prolia atenolol as well as gabapentin 300 mg 5 times daily. Patient states she lost both of these medications. Since then she has been experiencing restlessness. Patient has not been able to sleep in 2 days. She has no other complaints. No chest pain or shortness of breath. No nausea vomiting or diaphoresis. No trauma. Symptoms are mild to moderate in intensity. No specific worsening improving factors. Patient voices no other complaints or concerns at this time. Portions of this note were created with voice recognition technology. There may be grammatical, spelling, punctuation or sound alike errors Timing/Duration: day(s) (2 days ago) Severity: moderate Modifying Factors: Improves With: nothing Associated Symptoms: denies symptoms Allergies/Adverse Reactions: hydrocodone [From Vicodin] Allergy (Severe, Verified 08/21/17 13:35) Vomiting codeine Allergy (Verified 08/21/17 13:35) dizzy, n&v Home Medications: Amlodipine Besylate 5 mg [Norvasc 5 mg] 5 mg PO DAILY 07/14/14 [History] Hydrochlorothiazide 25 mg [hydroDIURIL 25 MG] 25 mg PO DAILY 07/14/14 [History] Lisinopril [Zestril] 20 mg PO DAILY 07/14/14 [History] Sertraline HCl 100 mg [Zoloft 100 MG] 100 mg PO DAILY 02/01/15 [History] Pramipexole Di-HCl [Mirapex] 0.5 mg PO QHS 01/03/17 [History] Gabapentin [Neurontin] 300 mg PO .5XDAILY 01/04/17 [History] Levothyroxine Sodium 25 Mcg [Synthroid 25 Mcg] 25 mcg PO DAILY 04/07/17 [History] Albuterol 8 gm Mdi Hfa [Ventolin Hfa MDI] 18 gm IH QID PRN 08/07/17 [History] Naproxen 500 mg [Naprosyn 500 MG] 500 mg PO BID 08/21/17 [History] Tizanidine HCl 4 mg [Zanaflex 4 MG] 4 mg PO HS 08/21/17 [History] Omeprazole 20 MG [Prilosec 20 mg] 20 mg PO DAILY 08/26/17 [History] Hx Tetanus, Diphtheria Vaccination/Date Given: Yes Hx Influenza Vaccination/Date Given: No Hx Pneumococcal Vaccination/Date Given: No Immunizations Up to Date: Yes Travel Risk - International Travel Have you traveled outside of the country in past 3 weeks: No - Coronavirus Screening Are you exhibiting any of the following symptoms?: No Close contact with a COVID-19 positive Pt in past 14-21 Days: No - Vaccine Status Have you recieved a Covid-19 vaccination: No - Review of Systems Constitutional: No Symptoms, No Fever, No Chills Eyes: No Symptoms Ears, Nose, & Throat: No Symptoms Respiratory: No Symptoms, No Cough, No Dyspnea Cardiac: No Symptoms, No Chest Pain, No Edema, No Syncope Abdominal/Gastrointestinal: No Symptoms, No Abdominal Pain, No Nausea, No Vomiting, No Diarrhea Genitourinary Symptoms: No Symptoms, No Dysuria Musculoskeletal: No Symptoms, No Back Pain, No Neck Pain Skin: No Symptoms, No Rash Neurological: No Symptoms, No Dizziness, No Focal Weakness, No Sensory Changes Psychological: No Symptoms Endocrine: No Symptoms Hematologic/Lymphatic: No Symptoms Immunological/Allergic: No Symptoms All Other Systems: Reviewed and Negative - Past Medical History Pertinent Past Medical History: Yes Neurological History: No Pertinent History ENT History: Cataracts Cardiac History: Hypertension Respiratory History: Asthma, Pneumonia, Other Endocrine Medical History: No Pertinent History Musculoskeletal History: No Pertinent History GI Medical History: Colitis, Diverticulitis, Polyps, Other History: No Pertinent History Psycho-Social History: Anxiety, Depression Female Reproductive Disorders: No Pertinent History Other Medical History: RESTLESS LEG SYNDROME, PTSD. colostomy - Past Surgical History Past Surgical History: Yes Neuro Surgical History: No Pertinent History Cardiac: No Pertinent History Respiratory: No Pertinent History Gastrointestinal: Colon Resection Genitourinary: No Pertinent History Musculoskeletal: No Pertinent History Female Surgical History: Tubal Ligation, Other Other Surgical History: infected milk duct in left breast in 2013 had to have it removed. tubal ligation, jaw surgery 33 years ago - Social History Smoking Status: Current every day smoker How long have you smoked: 25 years Exposure to second hand smoke: Yes Drug Use: none Patient Lives Alone: No - Nursing Vital Signs Nursing Vital Signs: Initial Vital Signs Temperature 97.5 F 03/26/22 11:03 Pulse Rate 120 H 03/26/22 11:03 Respiratory Rate 28 H 03/26/22 11:03 Blood Pressure 154/102 03/26/22 11:03 O2 Sat by Pulse Oximetry 97 03/26/22 11:03 Pain Scale Pain Intensity 4 - Physical Exam General Appearance: no apparent distress, alert, other (Patient is restless. She is pacing in the room. ) Eye Exam: PERRL/EOMI, eyes nml inspection Ears, Nose, Throat Exam: normal ENT inspection, TMs normal, pharynx normal, moist mucous membranes Neck Exam: normal inspection, non-tender, supple, full range of motion Respiratory Exam: normal breath sounds, lungs clear, airway intact, No respiratory distress Cardiovascular Exam: regular rate/rhythm, normal heart sounds, normal peripheral pulses Gastrointestinal/Abdomen Exam: soft, normal bowel sounds, other (Ostomy bag), No tenderness, No mass Back Exam: normal inspection, normal range of motion, No CVA tenderness, No vertebral tenderness Extremity Exam: normal inspection, normal range of motion, pelvis stable Neurologic Exam: alert, oriented x 3, cooperative, normal mood/affect, nml cerebellar function, nml station & gait, sensation nml, No motor deficits Skin Exam: normal color, warm, dry, No rash Lymphatic Exam: No adenopathy SpO2 Interpretation: normal SpO2: 97 O2 Delivery: Room Air - Course Nursing assessment & vital signs reviewed: Yes Ordered Tests: Medication Summary Discontinued Medications Generic Name Dose Route Start Last Admin Trade Name Freq PRN Reason Stop Dose Admin Gabapentin 300 mg 03/26/22 11:08 03/26/22 11:20 Gabapentin 300 Mg Capsule PO 03/26/22 11:09 300 mg DAILY STA Administration Ropinirole HCl 0.5 mg 03/26/22 11:09 03/26/22 11:20 Ropinirole Hcl 0.5 Mg Tablet PO 03/26/22 11:10 0.5 mg DAILY STA Administration - Progress Progress: improved Progress Note: Patient reassessed. She is feeling better at this time however remains tachycardic. Due to abnormal vitals patient not meeting discharge criteria. However patient is insisting on being discharged. Patient will leave AMA. Patient is of sound mind. Patient is appropriate to make informed and independent medical decisions. Patient understands that leaving AGAINST MEDICAL ADVICE can result in delayed diagnosis, increased risk of morbidity, mortality, short and long-term disability including . In spite of these risks, patient has decided to leave AGAINST MEDICAL ADVICE. Patient understands that she may return to our ED at any point if she reconsiders. Patient agrees to follow-up with her primary care doctor within 48 hours for reevaluation. Patient voices no other complaints or concerns at this time. We will release patient AGAINST MEDICAL ADVICE per their request. 03/26/22 12:31 We provided patient with 1 week refill of both ropinirole and gabapentin. Patient agrees to follow-up with her primary care doctor within 48 hours for reevaluation and medication refill Portions of this note were created with voice recognition technology. There may be grammatical, spelling, punctuation or sound alike errors 03/26/22 12:43 Counseled pt/family regarding: diagnosis, need for follow-up - Departure Departure Disposition: AMA Clinical Impression: Medication withdrawal, Medication refill Condition: Stable Critical Care Time: No Referrals: MARGARITA MORSE [Primary Care Provider] - Follow up/PCP as directed Additional Instructions: Discharge/Care Plan JOEL ELLIOTT MARJORIE was seen on 03/26/22 in the Emergency Room. The patient was counseled regarding Diagnosis,Lab results, Imaging studies, need for follow up and when to return to the Emergency Room. Prescriptions given: Discharge Note I have spoken with the patient and/or caregivers. I have explained the patient's condition, diagnosis and treatment plan based on the information available to me at this time. I have answered the patient's and/or caregiver's questions and addressed any concerns. The patient and/or caregivers have as good understanding of the patient's diagnosis, condition and treatment plan as can be expected at this point. The vital signs have been stable. The patient's condition is stable and appropriate for discharge from the emergency department. The patient will pursue further outpatient evaluation with the primary care physician or other designated or consulting physician as outlined in the discharge instructions. The patient and/or caregivers are agreeable to this plan of care and follow-up instructions have been explained in detail. The patient and/or caregivers have received these instruction. The patient/and or caregivers are aware that any significant change in condition or worsening of symptoms should prompt an immediate return to this or the closest emergency department or call 911. Prescriptions: Ropinirole HCl 0.5 mg [Requip 0.5 MG] 0.5 mg PO QHS 7 Days #7 tablet Gabapentin [Neurontin ] 100 mg PO TID 7 Days #21 cap
[2022-03-26 12:37] VITALS: BP 187/100; PULSE 122
[2022-03-26 12:39] VITALS: O2SAT 97
== END 2022-03-26 12:49 | disposition left against medical advice (07) ==
LOC: ED 11:03
DX: F19.939 Other psychoactive substance use, unspecified with withdrawal, unspecified (principal); R45.1 Restlessness and agitation; Z76.0 Encounter for issue of repeat prescription; G25.81 Restless legs syndrome; I10 Essential (primary) hypertension; Z72.0 Tobacco use; Z28.310 Unvaccinated for COVID-19; Z79.899 Other long term (current) drug therapy
CPT/HCPCS: 99282; A9270-GY